=== PATIENT | male | born 1970 | race Caucasian/White ===

== ENCOUNTER → 2020-05-27 10:38 | Outpatient (CLI) | payer OTHER, SELFPAY ==
--- NOTE | ~2020-05-27 | XR_ITS ---
XR hand LT min 3V DATE: 05/27/2020 11:20 INDICATION: Hand pain TECHNIQUE: 3 views COMPARISON: None FINDINGS: There is osteoarthritic spurring at the interphalangeal joint of the first digit. No fracture, dislocation, periosteal reaction or bone destruction, erosive change or chondrocalcinosi s. 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
--- NOTE | ~2020-05-27 | XR_ITS ---
XR sternum min 2V DATE: 05/27/2020 11:20 INDICATION: Sternal knot TECHNIQUE: Oblique and lateral views COMPARISON: None FINDINGS: No fracture or bone destruction or other significant abnormality of the sternum is evident. IMPRESSION: Negative Reviewed, dictated and finalized at location B. IMPRESSION: Negative
--- NOTE | ~2020-05-27 | XR_ITS ---
XR hand RT min 3V DATE: 05/27/2020 11:20 INDICATION: Hand pain TECHNIQUE: 3 views COMPARISON: None FINDINGS: There is osteoarthritic spurring at the interphalangeal joint of the thumb. No fracture, dislocation, periosteal reaction or bone destruction, erosive change or chondrocalcinosi s. IMPRESSION: Osteoarthritis at interphalangeal joint of thumb Reviewed, dictated and finalized at location B.
--- NOTE | ~2020-05-27 | XR_ITS ---
XR hip BI wo pelvis DATE: 05/27/2020 11:19 INDICATION: Hip pain TECHNIQUE: AP, lateral and crosstable lateral views of each hip COMPARISON: None FINDINGS: No fracture or dislocation, avascular necrosis or bone destruction is evident. Hip joint sp aces are well preserved. The pubic symphysis and sacral iliac joints are intact. IMPRESSION: Negative Reviewed, dictated and finalized at location B. IMPRESSION: Negative
--- NOTE | ~2020-05-27 | XR_ITS ---
XR chest 2V DATE: 05/27/2020 11:19 INDICATION: Sternal knot TECHNIQUE: PA and lateral views COMPARISON: None FINDINGS: Normal heart size. No hilar or mediastinal enlargement. No pulmonary infiltrate or consolid ation, pleural effusion or pulmonary vascular congestion or pneumothorax. IMPRESSION: No active cardiopulmonary disease Reviewed, dictated and finalized at location B.
== END ==
PROVIDERS: PCP Emergency Medicine; Visit Provider Emergency Medicine
DX: M79.89 Other specified soft tissue disorders (principal); M19.041 Primary osteoarthritis, right hand; M19.042 Primary osteoarthritis, left hand
CPT/HCPCS: 71046; 71120; 73130; 73521

== ENCOUNTER 2020-08-27 10:42 | Emergency (ER) | payer OTHER, SELFPAY ==
--- NOTE | ~2020-08-27 | XR_ITS ---
EXAMINATION: XR tibia fibula LT 2V INDICATION: Left leg pain after fall TECHNIQUE: Two views of the left tibia and fibula are obtained. COMPARISON: None available FINDINGS: There is no fracture, dislocation, or subluxation. Bone alignment is normal. Soft tissue sw elling is seen over the mid leg. Mild osteoarthritis is noted in the knee. IMPRESSION: 1. Anterior soft tissue swelling without evidence of underlying osseous abnormality. Reviewed, dictated and finalized at location A. MAYONNAISE IMPRESSION: 1. Anterior soft tissue swelling without evidence of underlying osseous abnorma lity.
[2020-08-27 11:00] VITALS: BP 163/84; PULSE 75; RESP 18; TEMP 36.8; O2SAT 100
--- NOTE | 2020-08-27 11:27 | ED.LOWEXIN ---
HPI - Extremity Injury (Lower) General Chief Complaint: Extremity Injury, Lower Stated Complaint: Left Leg Injury Time Seen by Provider: 08/27/20 11:05 Source: patient Mode of arrival: ambulatory Limitations: no limitations History of Present Illness HPI Narrative: This is a 50 year old male that presents to the ER for left leg injury 6 days ago. Reports he accidentally hit his left leg on the bottom of his boat. Reports a superficial abrasion to the area. Reports since he has had increasing redness and pain to the area. Denies fever. Related Data Home Medications Medication Instructions Recorded Confirmed aspirin 81 mg PO DAILY 08/27/20 losartan 100 mg PO DAILY 08/27/20 simvastatin 20 mg PO DAILY 08/27/20 tamsulosin 0.4 mg PO DAILY 08/27/20 Allergies Allergy/AdvReac Type Severity Reaction Status Date / Time No Known Allergies Allergy Verified 08/27/20 11:10 Review of Systems Review of Systems: Narrative: CONSTITUTIONAL: Denies fever SKIN: Reports erythema and edema MUSCULOSKELETAL: Denies joint pain, or myalgia. NEUROLOGIC: Denies numbness All systems reviewed & are unremarkable except as noted in HPI and below PMFSH Past Medical History Medical History (Updated 08/27/20 @ 13:49 by Sirena Sevilla PA-C) History of hyperlipidemia History of hypertension Exam Narrative: Exam Narrative: GENERAL: Well-appearing, well-nourished, and in no acute distress. HEAD: Normocephalic, atraumatic. EYES: EOMI. EXTREMITIES: Normal range of motion. Mild edema with moderate erythema surrounding superficial abrasion to the left mcdonald. Normal DP pulses. Normal sensation SKIN: Warm, dry, no rash. NEURO: No focal deficits. Alert and oriented x3. PSYCH: Normal mood and affect Course Vital Signs Vital signs: Vital Signs Temperature 98.2 F 08/27/20 11:00 Pulse Rate 75 08/27/20 11:00 Respiratory Rate 18 08/27/20 11:00 Blood Pressure 163/84 H 08/27/20 11:00 Pulse Oximetry 100 08/27/20 11:00 Temperature 98.2 F 08/27/20 11:00 Pulse Rate 75 08/27/20 11:00 Respiratory Rate 18 08/27/20 11:00 Blood Pressure 163/84 H 08/27/20 11:00 Pulse Oximetry 100 08/27/20 11:00 MDM - Extremity Injury (Lower) MDM Narrative Medical decision making narrative: Patient presents the emergency department for cellulitis of the left lower extremity. He is afebrile and nontoxic-appearing. CBC is without leukocytosis. Inflammatory markers are not elevated. Left tib-fib x-ray is without acute osseous abnormalities. Patient updated on case findings. He will be started on oral antibiotics. He is to follow-up with primary care doctor. He was given warnings to return to the ER Lab Data Attestation: I reviewed the patient's lab results. Result diagrams: 08/27/20 11:50 08/27/20 11:50 Labs: Lab Results 08/27/20 08/27/20 Range/Units 11:50 11:50 WBC 6.4 (4.5-10.0) K/mm3 RBC 5.12 (4.6-6.20) M/mm3 Hgb 16.2 (14.0-18.0) g/dL Hct 45.5 (42.0-52.0) % MCV 88.9 (80-100) fl MCH 31.6 (26-34) pg MCHC 35.6 (32-36) g/dl RDW 12.9 (11.5-14.5) % Plt Count 200 (150-375) k/mm3 MPV 9.1 (7.4-10.4) fl Immature Gran % (Auto) 0.2 (0-0.5) % Neut % (Auto) 70.3 (45.5-73.1) % Lymph % (Auto) 17.7 L (18.3-44.2) % [place] % (Auto) 9.3 H (2.6-8.5) % Eos % (Auto) 2.2 (0-4.4) % Baso % (Auto) 0.3 (0.2-1.2) % Lymph # (Auto) 1.14 (0.9-3.2) K/mm3 [place] # (Auto) 0.6 (0.1-0.6) K/mm3 Eos # (Auto) 0.1 (0-0.3) K/mm3 Baso # (Auto) 0.0 (0.0-0.1) K/mm3 Abs Immat Gran (auto) 0.01 (0.00-0.031) K/mm3 Absolute Neuts (auto) 4.5 (1.3-6.7) K/mm3 Absolute Nucleated RBC 0.0 (0.0-0.012) K/mm3 Nucleated RBC % 0.0 (0.0-0.2) % ESR 10 (0-20) mm/hr Sodium 140 (137-145) mmol/L Potassium 4.0 (3.4-5.0) mmol/L Chloride 104 (98-107) mmol/L Carbon Dioxide 28 (22-30) mmol/L Anion Gap 8 (8-16) mmol/L BUN 20 (9-20) mg/dL
[2020-08-27] MEDS: TETANUS,DIPHTHERIA,AC PERTUSSIS ADULT (0.5 ML) BOOSTRIX IM (11:51)
[2020-08-27 12:05] LABS: Basophils Percent Auto 0.3 % (0.2-1.2); Eosinophils Absolute Auto 0.1 K/mm3 (0-0.3); Eosinophils Percent Auto 2.2 % (0-4.4); Hematocrit 45.5 % (42.0-52.0); Hemoglobin 16.2 g/dL (14.0-18.0); Immature Granulocyte Absolute 0.01 K/mm3 (0.00-0.031); Immature Granulocyte Percent A 0.2 % (0-0.5); Lymphocytes Absolute Auto 1.14 K/mm3 (0.9-3.2); Lymphocytes Percent Auto 17.7 % (18.3-44.2); Mean Corpuscular HGB Conc 35.6 g/dl (32-36); Mean Corpuscular Hemoglobin 31.6 pg (26-34); Mean Corpuscular Volume 88.9 fl (80-100); Mean Platelet Volume 9.1 fl (7.4-10.4); Monocytes Absolute Auto 0.6 K/mm3 (0.1-0.6); Monocytes Percent Auto 9.3 % (2.6-8.5); Neutrophils Absolute Auto 4.5 K/mm3 (1.3-6.7); Neutrophils Percent Auto 70.3 % (45.5-73.1); Platelet Count Result 200 k/mm3 (150-375); Red Blood Count 5.12 M/mm3 (4.6-6.20); Red Cell Distribution Width 12.9 % (11.5-14.5); White Blood Count 6.4 K/mm3 (4.5-10.0)
[2020-08-27 12:21] LABS: Anion Gap 8 mmol/L (8-16); Blood Urea Nitrogen 20 mg/dL (9-20); CRP 0.7 mg/dL (<1.0); Calcium 9.6 mg/dL (8.4-10.2); Carbon Dioxide 28 mmol/L (22-30); Chloride 104 mmol/L (98-107); Estimated CRCL calculation 92 ml/min; Estimated Glomerular Filt Rate > 60; Glucose 119 mg/dL (75-110); Sodium 140 mmol/L (137-145)
[2020-08-27 13:23] LABS: Erythrocyte Sedimentation Rate 10 mm/hr (0-20)
== END 2020-08-27 14:22 | disposition home or self-care (01) ==
PROVIDERS: Physician Assistant; Emergency Provider Emergency Medicine; PCP Emergency Medicine
DX: L03.116 Cellulitis of left lower limb (principal); Z23 Encounter for immunization; E78.5 Hyperlipidemia, unspecified; I10 Essential (primary) hypertension
CPT/HCPCS: 36415; 73590; 80048; 85025; 85652; 86140; 90471; 90715; 96374; 99284; A9270; J0690

== ENCOUNTER → 2021-02-24 18:41 | Outpatient (CLI) | payer OTHER, SELFPAY ==
--- NOTE | ~2021-02-24 | XR_ITS ---
EXAMINATION: XR shoulder LT min 2V DATE: 02/24/2021 19:03 INDICATION: Left shoulder pain. TECHNIQUE: 4 views of left shoulder were obtained. COMPARISON: None. FINDINGS: Bone alignment is normal. No fracture. There is mild osteoarthritis of glenohumeral joint a nd severe osteoarthritis of acromioclavicular joint. IMPRESSION: 1. Polyarticular osteoarthritis. Reviewed, dictated and finalized at location A.
== END ==
PROVIDERS: PCP Emergency Medicine; Visit Provider Emergency Medicine
DX: M19.012 Primary osteoarthritis, left shoulder (principal)
CPT/HCPCS: 73030

== ENCOUNTER 2022-09-26 23:10 | Inpatient (IN) | payer OTHER, SELFPAY ==
--- NOTE | ~2022-09-26 | XR_ITS ---
XR chest 2V 09/26/2022 23:48 Indication: Fever and cough Procedure: 2 view chest Comparison: 05/27/2020 Findings: There is right perihilar and left basilar airspace disease. Heart size normal. No pleural e ffusion or pneumothorax. No acute osseous abnormality. Impression: 1: Right perihilar and left basilar airspace disease, suspicious for pneumonia. Reviewed, dictated and finalized at location A. RITY TRAINER Impression: 1: Right perihilar and left basilar airspace disease, suspicious for pneumonia.
--- NOTE | ~2022-09-26 | XR_ITS ---
XR chest 2V 09/30/2022 12:03 Indication: COPD. Shortness of breath and cough. Procedure: PA and lateral views of the chest Comparison: 09/26/2022 Findings: Heart size normal. No focal air space disease, pulmonary edema, pleural effusion or suspect ed pneumothorax. No acute osseous abnormality. Impression: 1: No acute cardiopulmonary disease. Reviewed, dictated and finalized at location A. SHARPSHOOTER Impression: 1: No acute cardiopulmonary disease.
[2022-09-26 23:13] VITALS: BP 158/82; PULSE 99; RESP 18; TEMP 37.3; O2SAT 96
[2022-09-26 23:41] LABS: Basophils Percent Auto 0.2 % (0.2-1.2); Eosinophils Absolute Auto 0.1 K/mm3 (0-0.3); Eosinophils Percent Auto 0.5 % (0-4.4); Hematocrit 43.8 % (42.0-52.0); Hemoglobin 15.5 g/dL (14.0-18.0); Immature Granulocyte Absolute 0.04 K/mm3 (0.00-0.031); Immature Granulocyte Percent A 0.4 % (0-0.5); Lymphocytes Absolute Auto 1.83 K/mm3 (0.9-3.2); Lymphocytes Percent Auto 17.8 % (18.3-44.2); Mean Corpuscular HGB Conc 35.4 g/dl (32-36); Mean Corpuscular Hemoglobin 31.6 pg (26-34); Mean Corpuscular Volume 89.4 fl (80-100); Mean Platelet Volume 9.4 fl (7.4-10.4); Monocytes Absolute Auto 1.1 K/mm3 (0.1-0.6); Monocytes Percent Auto 10.6 % (2.6-8.5); Neutrophils Absolute Auto 7.3 K/mm3 (1.3-6.7); Neutrophils Percent Auto 70.5 % (45.5-73.1); Platelet Count Result 258 k/mm3 (150-375); Red Cell Distribution Width 12.5 % (11.5-14.5); White Blood Count 10.3 K/mm3 (4.5-10.0)
--- NOTE | 2022-09-26 23:56 | ED.URI ---
HPI - URI/Sore Throat General Chief Complaint: Upper Respiratory Infection <Sirena Sevilla PA-C - Last Filed: 09/27/22 02:14> Stated Complaint: cough, congestion since thanksgiving <RANDY Rodriguez Last Filed: 09/27/22 02:14> Time Seen by Provider: 09/26/22 23:22 <RANDY Rodriguez Last Filed: 09/27/22 02:14> Source: patient and family <RANDY Rodriguez Last Filed: 09/27/22 02:14> Mode of arrival: ambulatory <RANDY Rodriguez Last Filed: 09/27/22 02:14> Limitations: no limitations <RANDY Rodriguez Last Filed: 09/27/22 02:14> History of Present Illness HPI Narrative: This is a 52-year-old male that presents to the emergency department for cold symptoms ongoing over the last week. Reports fever, cough, congestion, sore throat, and shortness of breath. Reports he has been using his inhaler and taking over the counter medications with little relief. He did not get an influenza or COVID vaccine this year. Denies fever or lower extremity edema. <RANDY Rodriguez Last Filed: 09/27/22 02:14> Related Data Home Medications: Home Medications Medication Instructions Recorded Confirmed losartan 50 mg tablet 100 mg PO DAILY 08/27/20 09/27/22 simvastatin 20 mg tablet 20 mg PO DAILY 08/27/20 09/27/22 tamsulosin 0.4 mg capsule 0.4 mg PO DAILY 08/27/20 09/27/22 carvedilol 12.5 mg tablet 12.5 mg PO BID 09/27/22 09/27/22 hydrochlorothiazide 25 mg tablet 25 mg PO QHS 09/27/22 09/27/22 <RANDY Rodriguez Last Filed: 09/27/22 02:14> Allergies/Adverse Reactions: Allergies Allergy/AdvReac Type Severity Reaction Status Date / Time No Known Allergies Allergy Verified 08/27/20 11:10 <RANDY Rodriguez Last Filed: 09/27/22 02:14> Review of Systems Review of Systems: CONSTITUTIONAL: Reports fever EYES: Denies redness, or discharge. ENT: Reports rhinorrhea, congestion, sore throat CARDIOVASCULAR: Denies chest pain, or edema. RESPIRATORY: Reports cough and dyspnea. GASTROINTESTINAL: Denies vomiting SKIN: Denies rash MUSCULOSKELETAL: Reports myalgia. NEUROLOGIC: Reports generalized weakness. PSYCHIATRIC: Denies anxiety <Sirena Sevilla PA-C - Last Filed: 09/27/22 02:14> All systems reviewed & are unremarkable except as noted in HPI and below <Sirena Sevilla PA-C - Last Filed: 09/27/22 02:14> PMFSH Past Medical History Medical History: Medical History (Updated 09/27/22 @ 02:44 by Leonid Whiteside MD) History of hyperlipidemia History of hypertension <Sirena Sevilla PA-C - Last Filed: 09/27/22 02:14> Family History Family History: Family History (Updated 09/27/22 @ 05:04 by Karlie Cast RN) Mother Diabetes mellitus Hypertension Father Acute myocardial infarction Diabetes mellitus <Sirena Sevilla PA-C - Last Filed: 09/27/22 02:14> Social History Social History: Social History Smoking packs per day: 1 Smoking cigarettes per day: 20.0 Smoking status: Former smoker Tobacco type: cigarettes Smoking end date: 09/17/22 Alcohol intake: current Drinks per week: 8 Lack of Transportation: No Lack of Food: Never True Current Housing: I Have Housing Concerned About Future Housing: No Difficulty Paying Gas/Electric Bills: No Difficulty Paying for Meds: No Currently Unemployed: No Education: High School Diploma/GED Difficulty w/ Childcare or Family Care: No Spiritual care concerns: No <RANDY Rodriguez Last Filed: 09/27/22 02:14> Exam Narrative: GENERAL: Well-appearing, well-nourished, and in no acute distress. HEAD: Normocephalic, atraumatic. EYES: EOMI. ENT: Nares clear, no rhinorrhea or epistaxis. Mucous membranes moist. Oropharynx without tonsillar hypertrophy exudate or other lesions. Bilateral TMs pearly esquivel non-bulging NECK: Supple. No adenopathy or masses. CHEST: No res
[2022-09-26 23:57] LABS: Anion Gap 7 mmol/L (8-16); Blood Urea Nitrogen 16 mg/dL (9-20); Calcium 8.2 mg/dL (8.4-10.2); Carbon Dioxide 29 mmol/L (22-30); Chloride 101 mmol/L (98-107); Estimated CRCL calculation 71 ml/min; Estimated Glomerular Filt Rate > 60; Glucose 125 mg/dL (65-110); Potassium 3.5 mmol/L (3.4-5.0); Sodium 137 mmol/L (137-145)
[2022-09-26] MEDS: ALBUTEROL SULFATE NEB 2.5 MG/3 ML INH 5 MG INHALATION (23:59)
[2022-09-26] MEDS: IPRATROPIUM BR 0.02% INH SOLN 0.5 MG/2.5 ML VIAL INHALATION (23:59)
[2022-09-27] VITALS (13 sets, daily range): BP systolic 118–157; BP diastolic 59–83; PULSE 75–94; RESP 16–20; TEMP 36.6; O2SAT 95–98; BMI 32.6
[2022-09-27 00:09] LABS: Troponin I < 0.012 ng/mL (0.000-0.034)
[2022-09-27] MEDS: methylPREDNISolone SOD SUCC 125 MG VIAL IV PUSH (00:20)
[2022-09-27 00:29] LABS: Influenza A QL RT-PCR Negative (Negative); Influenza B QL RT-PCR Negative (Negative); RSV RNA, RT-PCR Negative (Negative); SARS-CoV-2 RNA PCR Negative
[2022-09-27] MEDS: ALBUTEROL SULFATE NEB 2.5 MG/3 ML INH 15 MG INHALATION (00:34)
[2022-09-27] MEDS: IPRATROPIUM BR 0.02% INH SOLN 0.5 MG/2.5 ML VIAL 1.5 MG INHALATION (00:35)
--- NOTE | 2022-09-27 02:06 | PM.IMHP ---
H&P: HPI History of Present Illness Date/Time: 09/27/22 02:06 Chief Complaint: 52 years old male with past medical history of hypertension hyperlipidemia quit smoking on last with day presented to the hospital with shortness of breath started 1 week ago worsening with activity associated with sore throat congestion patient also has lower extremity swelling and complaining of orthopnea denies fever or chills patient was given nebulizer treatment and steroid in the ER without improvement patient will be admitted to the hospital for COPD exacerbation evaluation and treatment Review of Systems Review of Systems: Twelve system review was done negative except above PMFSH Past Medical History Medical History (Updated 09/27/22 @ 02:44 by Leonid Whiteside MD) History of hyperlipidemia History of hypertension Social History Social History Smoking status: Former smoker Smoking end date: 09/17/22 Meds Home Medications and Allergies Home Medications Medication Instructions Recorded Confirmed Type aspirin 81 mg tablet 81 mg PO DAILY 08/27/20 History cephalexin 500 mg capsule 500 mg PO Q6H 1 week #28 caps 08/27/20 Rx levofloxacin 750 mg tablet 750 mg PO DAILY 1 week #7 tabs 08/27/20 Rx losartan 50 mg tablet 100 mg PO DAILY 08/27/20 History simvastatin 20 mg tablet 20 mg PO DAILY 08/27/20 History tamsulosin 0.4 mg capsule 0.4 mg PO DAILY 08/27/20 History Allergies Allergy/AdvReac Type Severity Reaction Status Date / Time No Known Allergies Allergy Verified 08/27/20 11:10 Vital Signs Vital Signs - 24 hr 09/26/22 23:13 09/27/22 00:00 09/27/22 00:36 Temperature 99.1 F Pulse Rate 99 94 78 Respiratory Rate 18 18 18 Blood Pressure 158/82 H Pulse Oximetry 96 Oxygen Delivery Room Air Exam Narrative: GENERAL: Well appearing, well-nourished, non-toxic, in no acute distress. HEAD: Normocephalic, atraumatic. NECK: Supple. No adenopathy, no masses. RESPIRATORY: Bilateral wheeze and crackles CARDIOVASCULAR: Regular rate and rhythm without murmurs, rubs, or gallops. Peripheral pulses 2+ and equal bilaterally. ABDOMINAL: Soft, nontender, nondistended, no hepatosplenomegaly. Normoactive BS. MUSCULOSKELETAL: Moves all extremities. Strength/ROM intact without gross deformities or TTP. No edema. No calf tenderness. No chest wall tenderness palpation. SKIN: Warm, dry, normal color. No rashes. NEURO: A&O X3. Speech clear. Cranial nerves II-XII grossly intact. Steady gait. No ataxic movements. PSYCHIATRIC: Appropriate mood and affect. Normal interaction. H&P: Results Labs Labs: Short CBC 09/26/22 Range/Units 23:36 WBC 10.3 H (4.5-10.0) K/mm3 Hgb 15.5 (14.0-18.0) g/dL Hct 43.8 (42.0-52.0) % Plt Count 258 (150-375) k/mm3 BMP 09/26/22 23:36 Sodium 137 Potassium 3.5 Chloride 101 Carbon Dioxide 29 BUN 16 Creatinine 1.20 Glucose 125 H Calcium 8.2 L Cardiac Enzymes 09/26/22 Range/Units 23:36 Troponin I < 0.012 (0.000-0.034) ng/mL Assessment and Plan Assessment and plan (1) COPD exacerbation: Code(s): J44.1 - Chronic obstructive pulmonary disease with (acute) exacerbation Status: Acute Assessment and Plan: Nebulizer treatment IV steroid IV antibiotics sputum culture influenza and COVID-19 was negative (2) History of hyperlipidemia: Code(s): Z86.39 - Personal history of other endocrine, nutritional and metabolic disease Status: Acute Assessment and Plan: Resume home medication (3) History of hypertension: Code(s): Z86.79 - Personal history of other diseases of the circulatory system Status: Acute Assessment and Plan: Stable continue current treatment resume losartan was medication reconciled (4) Orthopnea: Code(s): R06.01 - Orthopnea Status: Acute Assessment and Plan: Associated with lower extremity
--- NOTE | 2022-09-27 03:09 | ADMGEN ---
This patient, Rolando Alcala, was admitted to [facility] Surg Room 331-02. Patient/family oriented to hospital policies and general routines including ID bracelet, bed and alarms, visiting hours, pain management, procedures, bathroom and other care routines, personal items, smoking policy, room service/diet, and visiting hours. Information on how to activate the Rapid Response Team has been discussed. Patient/Family are encouraged to report perceived risks to care and to ask questions if they do not understand what they are told or what they should do.
[2022-09-27 03:29] LABS: Procalcitonin 0.1 ng/mL
[2022-09-27 03:48] LABS: NT Pro B Type Natriuretic Pept 32 pg/mL (5-100)
[2022-09-27] MEDS: cefTRIAXone 2 GM in SODIUM CHLORIDE 0.9% IV 100 ML 200 ML IVPB (04:05)
[2022-09-27] MEDS: FUROSEMIDE INJ 40 MG/4 ML VIAL IV PUSH ×2 (04:08→08:54)
[2022-09-27 08:21] LABS: Alanine Aminotransferase 37 U/L (6-50); Albumin Level 4.4 g/dL (3.5-5.1); Alkaline Phosphatase 103 U/L (38-126); Anion Gap 10 mmol/L (8-16); Aspartate Amino Transferase 35 U/L (17-59); Bilirubin,Total 0.4 mg/dL (0.2-1.3); Blood Urea Nitrogen 16 mg/dL (9-20); CRP 8.3 mg/dL (<1.0); Calcium 8.6 mg/dL (8.4-10.2); Carbon Dioxide 30 mmol/L (22-30); Chloride 98 mmol/L (98-107); Estimated CRCL calculation 66 ml/min; Estimated Glomerular Filt Rate 58; Glucose 181 mg/dL (65-110); Potassium 3.4 mmol/L (3.4-5.0); Sodium 138 mmol/L (137-145)
[2022-09-27 08:23] LABS: Basophils Percent Auto 0.2 % (0.2-1.2); Hematocrit 46.2 % (42.0-52.0); Hemoglobin 15.9 g/dL (14.0-18.0); Immature Granulocyte Absolute 0.05 K/mm3 (0.00-0.031); Immature Granulocyte Percent A 0.5 % (0-0.5); Lymphocytes Absolute Auto 0.69 K/mm3 (0.9-3.2); Lymphocytes Percent Auto 6.9 % (18.3-44.2); Mean Corpuscular HGB Conc 34.4 g/dl (32-36); Mean Corpuscular Hemoglobin 31.5 pg (26-34); Mean Corpuscular Volume 91.7 fl (80-100); Mean Platelet Volume 9.8 fl (7.4-10.4); Monocytes Absolute Auto 0.2 K/mm3 (0.1-0.6); Monocytes Percent Auto 1.7 % (2.6-8.5); Neutrophils Absolute Auto 9.1 K/mm3 (1.3-6.7); Neutrophils Percent Auto 90.7 % (45.5-73.1); Platelet Count Result 279 k/mm3 (150-375); Red Blood Count 5.04 M/mm3 (4.6-6.20); Red Cell Distribution Width 12.5 % (11.5-14.5); White Blood Count 10.1 K/mm3 (4.5-10.0)
[2022-09-27] MEDS: ALBUTEROL SULFATE NEB 2.5 MG/3 ML INH INHALATION ×3 (08:36→21:45)
[2022-09-27] MEDS: IPRATROPIUM BR 0.02% INH SOLN 0.5 MG/2.5 ML VIAL INHALATION ×3 (08:36→21:46)
[2022-09-27] MEDS: FAMOTIDINE 20 MG TABLET PO (08:54)
[2022-09-27] MEDS: ENOXAPARIN 40 MG/0.4 ML SYRINGE SUB-Q (08:54)
[2022-09-27] MEDS: methylPREDNISolone SOD SUCC 40 MG VIAL IV PUSH ×2 (08:54→17:34)
[2022-09-27] MEDS: TAMSULOSIN HCL 0.4 MG CAPSULE PO (08:56)
[2022-09-27] MEDS: carvediloL 12.5 MG TABLET PO ×2 (09:22→21:01)
[2022-09-27] MEDS: SIMVASTATIN 20 MG TABLET PO (09:22)
[2022-09-27] MEDS: AZITHROMYCIN 250 MG TABLET 500 MG PO (09:59)
[2022-09-27] MEDS: LOSARTAN POTASSIUM 100 MG TABLET PO (10:00)
--- NOTE | 2022-09-27 10:00 | PM.IMPN ---
Progress Note: A&P Assessment and Plan (1) COPD exacerbation: Code(s): J44.1 - Chronic obstructive pulmonary disease with (acute) exacerbation Status: Acute Assessment and Plan: Nebulizer treatment IV steroid 40mg Q8H IV antibiotics azithromycin and ceftriaxone sputum culture 1. showing normal jemal, 2. pending influenza and COVID-19 was negative Anti-tussives for cough Pulm consult thank you for your help (2) History of hyperlipidemia: Code(s): Z86.39 - Personal history of other endocrine, nutritional and metabolic disease Status: Acute Assessment and Plan: Resume home medication (3) History of hypertension: Code(s): Z86.79 - Personal history of other diseases of the circulatory system Status: Acute Assessment and Plan: Current BP is 153/83 Continue home medications Trend blood pressure Adjust therapy as indicated (4) Orthopnea: Code(s): R06.01 - Orthopnea Status: Acute Assessment and Plan: Associated with lower extremity swelling probable acute and of chronic diastolic CHF exacerbation Check echo BNP 38 IV diuresis Time Spent With Patient Time with patient: Greater than 35 minutes Subjective Date/time seen: 09/27/22 1000 Interval history: 09/27/22 1000 Patient seems to be doing well today. Patient was able to come to room air. Patient was also walked with the tach and was able to maintain his saturations with room air as well. He was complain severe coughing spells and muscle cramps. Labs have been stable. Will consult pulmonology as the patient is stating his breathing is worse. 09/27/22? 02:06 52 years old male with past medical history of hypertension hyperlipidemia quit smoking on last with day presented to the hospital with shortness of breath started 1 week ago worsening with activity associated with sore throat congestion patient also has lower extremity swelling and complaining of orthopnea denies fever or chills patient was given nebulizer treatment and steroid in the ER without improvement patient will be admitted to the hospital for COPD exacerbation evaluation and treatment Review of Systems Review of Systems: All systems reviewed & are unremarkable except as noted in HPI and below Exam Narrative: General: well-nourished, well-appearing 52-year-old male, sitting up in bed, comfortable, NARD Neuro: awake, alert and oriented x4, speech clear, no focal neuro deficits noted HEENMT: normocephalic, atraumatic, EOMI, sclerae anicteric, moist oral mucosa Respiratory: expiratory wheezes bilaterally without crackles, rhonchi nonlabored breathing, multiple coughing spells Cardio: regular rate, regular rhythm with S1-S2 Abdomen: nondistended, normoactive bowel sounds, soft, nontender to palpation Extremities: no edema, erythema, or tenderness to palpation, DP pulses 2+ bilaterally Skin: no rashes or lesions, warm and dry Psych: appropriate mood and affect, judgment and insight intact Objective Data Vital Signs Vital Signs: Vital Signs - 24 hr 09/26/22 23:13 09/27/22 00:00 09/27/22 00:36 Temperature 99.1 F Pulse Rate 99 94 78 Respiratory Rate 18 18 18 Blood Pressure 158/82 H Pulse Oximetry 96 Oxygen Delivery Room Air 09/27/22 02:58 09/27/22 03:15 09/27/22 08:47 Temperature 97.9 F Pulse Rate 81 84 75 Respiratory Rate 20 16 18 Blood Pressure 148/80 H 153/83 H Pulse Oximetry 97 95 Oxygen Delivery 09/27/22 08:55 09/27/22 09:22 09/27/22 08:45 Temperature Pulse Rate 75 75 Respiratory Rate 18 Blood Pressure Pulse Oximetry Oxygen Delivery Room Air Intake/Output Intake/Output: Intake & Output 09/24/22 09/25/22 09/26/22 09/27/22 23:59 23:59 23:59 23:59 Intake Total 720 Output Total 1750 Balance -1030 Meds/Results Medications: Active Medications Generic Name Dose Route Start Last Admin Trade
--- NOTE | 2022-09-27 12:59 | PM.DS ---
DS: Admitting Diagnosis Discharge Date 09/27/22 1000 Admitting Diagnosis COPD exacerbation DS: Discharge Diagnosis Discharge Diagnosis (1) COPD exacerbation: Code(s): J44.1 - Chronic obstructive pulmonary disease with (acute) exacerbation Status: Acute Assessment and Plan: Nebulizer treatment IV steroid IV antibiotics sputum culture influenza and COVID-19 was negative (2) History of hyperlipidemia: Code(s): Z86.39 - Personal history of other endocrine, nutritional and metabolic disease Status: Acute Assessment and Plan: Resume home medication (3) History of hypertension: Code(s): Z86.79 - Personal history of other diseases of the circulatory system Status: Acute Assessment and Plan: Stable continue current treatment resume losartan was medication reconciled (4) Orthopnea: Code(s): R06.01 - Orthopnea Status: Acute Assessment and Plan: Associated with lower extremity swelling probable acute and of chronic diastolic CHF exacerbation Check echo and BNP Will give IV diuresis DS: Summary Hospital Course Hospital Course: Patient is a 52-year-old male with past medical history of hypertension, hyperlipidemia, chronic smoker, BPH who presented to the ED with complaints of shortness of breath worsening over 1 week. Patient was noted to have bibasilar airspace disease suspicious for pneumonia. Patient was started on IV antibiotics. Patient does report increasing cough with sputum production, wheezes, shortness of breath. Patient was started on IV steroids for COPD exacerbation. Patient has also been given neb treatments. Supplemental oxygen was provided however has been weaned to room air and patient has been able to maintain greater than 90% on room air. Education about smoking cessation has been given. Patient denies any chest pain, shortness a breath, nausea, vomiting, diarrhea, constipation, weakness or fatigue. Patient is stable for discharge at this time and is ready to go. Did educate patient about asking about mortgage loan specialist at his next doctor's visit. Time spent discussing smoking cessation with patient: more than 10 minutes Status at Discharge Functional status at discharge: independent ambulation Overall status at discharge: patient is progressing back to baseline Time Spent with Patient Time attestation: Total time spent providing and/or coordinating discharge services:36 minutes Time spent: Greater than 30 minutes Specific discharge activities: Diagnostic testing, chart review, developing a treatment plan, education, care coordination documentation, physical exam, result review Exam Narrative: General: well-nourished, well-appearing 52-year-old male, sitting up in bed, comfortable, NARD Neuro: awake, alert and oriented x4, speech clear, no focal neuro deficits noted HEENMT: normocephalic, atraumatic, EOMI, sclerae anicteric, moist oral mucosa Respiratory: Clear to auscultation bilaterally without crackles, rhonchi or wheezes, nonlabored breathing Cardio: regular rate, regular rhythm with S1-S2 Abdomen: nondistended, normoactive bowel sounds, soft, nontender to palpation Extremities: no edema, erythema, or tenderness to palpation, DP pulses 2+ bilaterally Skin: no rashes or lesions, warm and dry Psych: appropriate mood and affect, judgment and insight intact DS: Data Data Completed and Pending Labs on day of discharge: Labs from last 24 hours 09/27/22 09/27/22 09/27/22 12:52 07:28 07:28 WBC 10.1 H RBC 5.04 Hgb 15.9 Hct 46.2 MCV 91.7 MCH 31.5 MCHC 34.4 RDW 12.5 Plt Count 279 MPV 9.8 Immature Gran % (Auto) 0.5 Neut % (Auto) 90.7 H Lymph % (Auto) 6.9 L [place] % (Auto) 1.7 L Eos % (Auto) 0.0 Baso % (Auto) 0.2 Lymph # (Auto) 0.69 L [place] # (Auto) 0.2 Eos # (Auto) 0.0 Baso # (Auto) 0.0 Abs Immat Gran (auto) 0.05 H Absolute Neuts (auto) 9.1 H Absolute Nucleated RBC
[2022-09-27 13:02] LABS: Potassium 3.5 mmol/L (3.4-5.0)
[2022-09-27] MEDS: SODIUM CHLORIDE 0.9% IV 250 ML 999 ML IV CONT (13:56)
[2022-09-27] MEDS: POTASSIUM CHLORIDE 20 MEQ PACKET (FOR LIQUID) 40 MEQ PO (13:57)
[2022-09-27] MEDS: TIZANIDINE HCL 2 MG TABLET PO (14:07)
[2022-09-27] MEDS: guaiFENesin/DEXTROMETHORPHAN 10 ML UDC PO (15:24)
[2022-09-27] MEDS: PANTOPRAZOLE 40 MG TABLET PO (21:00)
[2022-09-27] MEDS: hydroCHLOROthiazide 25 MG TABLET PO (21:01)
--- NOTE | 2022-09-27 23:28 | PC.NURSE ---
Pt is sleeping in bed. Pt continues to have a cough. Pt has no complaints of pain and expresses no other needs at this time. Pt participated and contributed in plan of care. Will continue to monitor pt.
[2022-09-28] VITALS (9 sets, daily range): BP systolic 139–154; BP diastolic 63–66; PULSE 60–71; RESP 14–20; TEMP 36.1–36.5; O2SAT 94–97
[2022-09-28] MEDS: methylPREDNISolone SOD SUCC 40 MG VIAL IV PUSH ×3 (00:17→17:21)
[2022-09-28] MEDS: ALBUTEROL SULFATE NEB 2.5 MG/3 ML INH INHALATION ×3 (01:52→20:54)
[2022-09-28] MEDS: IPRATROPIUM BR 0.02% INH SOLN 0.5 MG/2.5 ML VIAL INHALATION ×3 (01:52→20:53)
[2022-09-28] MEDS: cefTRIAXone 2 GM in SODIUM CHLORIDE 0.9% IV 100 ML 200 ML IVPB (02:11)
--- NOTE | 2022-09-28 02:45 | ECHO_ITS ---
Patient Info Name: Rolando Canada Cari Age: 52 years : 1970 Gender: Male Ht: 68 in Wt: 214 lbs BSA: 2.19 m2 HR: 85 bpm BP: 157 / 60 mmHg Heart Rhythm: Sinus Rhythm Exam Date: 09/28/2022 10:49 AM Exam Location: [facility] Patient Status: Outpatient Admit Date: 09/27/2022 Staff Ordering Physician: Leonid Whiteside M.A., MD Assistant Maintenance Manager: Abhi Munroe, CHRISTINA, RT Attending Provider: Leonid Whiteside M.A., MD Referring Physician: Emiliano RANDOLPH; Exam Type: CA echo doppler color flow Study Info Indications I50.9 - Heart failure, unspecified Complete two-dimensional, color flow and Doppler transthoracic echocardiogram is performed. Strain analysis performed. Summary 1. Left ventricular chamber dimension is normal. 2. Left ventricular systolic function is hyperdynamic, estimated at >70%. 3. There is mildly increased left ventricular wall thickness. 4. The left ventricular diastolic function is grade I diastolic dysfunction. 5. Global longitudinal strain is normal at -19 %. 6. There is no aortic valve stenosis. Left Ventricle Left ventricular chamber dimension is normal. Left ventricular systolic function is hyperdynamic, estimated at >70%. There is mildly increased left ventricular wall thickness. The left ventricular diastolic function is grade I diastolic dysfunction. Global longitudinal strain is normal at -19 %. Right Ventricle Right ventricular chamber dimension is normal. Right ventricular systolic function is normal. Left Atria Left atrial chamber dimension is normal. Right Atria Right atrial chamber dimension is normal. Aortic Valve The aortic valve is not well visualized. There is no aortic valve stenosis. There is no aortic valve regurgitation. Pulmonic Valve The pulmonic valve is not well visualized. Mitral Valve The mitral valve has normal leaflets. There is trace mitral valve regurgitation. Tricuspid Valve The tricuspid valve leaflets are normal. There is trace tricuspid valve regurgitation. Unable to estimate PA systolic pressure due to poor spectral resolution of tricuspid regurgitant jet velocity. Pericardium/Pleural The pericardium appears normal. There is small pericardial effusion. Inferior Vena Cava Normal inferior vena cava with >50% collapse upon inspiration consistent with normal right atrial pressure, 5 mmHg. Aorta The aortic root size at the sinus of Valsalva is normal. Left Ventricular Outflow Tract Name Value Normal LVOT 2D LVOT Diameter 2.0 cm LVOT Doppler LVOT Peak Gradient 7 mmHg LVOT Mean Gradient 3 mmHg LVOT VTI 22 cm LVOT VTI/AV VTI Ratio 0.6 LVOT Stroke Volume 68 ml Mitral Valve Name Value Normal MV Doppler MV Decel Slo
[2022-09-28 07:26] LABS: Basophils Percent Auto 0.2 % (0.2-1.2); Immature Granulocyte Absolute 0.09 K/mm3 (0.00-0.031); Immature Granulocyte Percent A 0.5 % (0-0.5); Lymphocytes Absolute Auto 1.36 K/mm3 (0.9-3.2); Lymphocytes Percent Auto 7.1 % (18.3-44.2); Mean Corpuscular HGB Conc 35.7 g/dl (32-36); Mean Corpuscular Hemoglobin 31.3 pg (26-34); Mean Corpuscular Volume 87.5 fl (80-100); Mean Platelet Volume 9.2 fl (7.4-10.4); Monocytes Absolute Auto 0.9 K/mm3 (0.1-0.6); Monocytes Percent Auto 4.9 % (2.6-8.5); Neutrophils Absolute Auto 16.8 K/mm3 (1.3-6.7); Neutrophils Percent Auto 87.3 % (45.5-73.1); Platelet Count Result 331 k/mm3 (150-375); White Blood Count 19.2 K/mm3 (4.5-10.0)
[2022-09-28 07:37] LABS: Alanine Aminotransferase 64 U/L (6-50); Alkaline Phosphatase 86 U/L (38-126); Anion Gap 6 mmol/L (8-16); Aspartate Amino Transferase 64 U/L (17-59); Bilirubin,Total 0.3 mg/dL (0.2-1.3); Blood Urea Nitrogen 24 mg/dL (9-20); Calcium 8.9 mg/dL (8.4-10.2); Carbon Dioxide 33 mmol/L (22-30); Chloride 95 mmol/L (98-107); Estimated CRCL calculation 71 ml/min; Estimated Glomerular Filt Rate > 60; Glucose 145 mg/dL (65-110); Potassium 3.8 mmol/L (3.4-5.0); Sodium 134 mmol/L (137-145)
[2022-09-28] MEDS: carvediloL 12.5 MG TABLET PO ×2 (08:38→21:26)
[2022-09-28] MEDS: ENOXAPARIN 40 MG/0.4 ML SYRINGE SUB-Q (08:38)
[2022-09-28] MEDS: AZITHROMYCIN 250 MG TABLET 500 MG PO (08:39)
[2022-09-28] MEDS: FUROSEMIDE INJ 40 MG/4 ML VIAL IV PUSH (08:39)
[2022-09-28] MEDS: SIMVASTATIN 20 MG TABLET PO (08:39)
[2022-09-28] MEDS: LOSARTAN POTASSIUM 100 MG TABLET PO (08:39)
[2022-09-28] MEDS: TAMSULOSIN HCL 0.4 MG CAPSULE PO (08:39)
[2022-09-28] MEDS: PANTOPRAZOLE 40 MG TABLET PO ×2 (08:39→21:26)
[2022-09-28] MEDS: guaiFENesin/DEXTROMETHORPHAN 10 ML UDC PO (12:54)
--- NOTE | 2022-09-28 13:02 | PM.CNPUL ---
Assessment and Plan Assessment and plan (1) COPD exacerbation: Code(s): J44.1 - Chronic obstructive pulmonary disease with (acute) exacerbation Status: Acute Assessment and Plan: Patient with a history of tobacco use and 15 pack year, worsening dyspnea on exertion over the last 20 years and now presents with 10 days worsening cough, phlegm production, fever, wheezing and dyspnea on exertion. I suspect the patient has COPD but I have no PFTs or CT scan to confirm this. I agree with treating patient for COPD exacerbation with possible pneumonia given his infiltrates on his chest x-ray. RT PCR studies for influenza, RSV and COVID are negative. One blood culture out of 2 was positive for Gram-positive cocci, will await identification. At this time would continue ceftriaxone and azithromycin both started on 09/27/2022. Patient is on Solu-Medrol 40 mg IV q.8 hours and I will continue this today. I will continue albuterol and ipratropium nebulizers and increased from Q 6 hours to q.4 hours. patient currently is on room air with saturations 97%. Patient is also being diuresed with Lasix and echocardiogram has been ordered. Will follow with you. History of Present Illness History of Present Illness Consult date: 09/28/22 Chief complaint: COPD Exacerbation Narrative: 09/28/2022: This is a new pulmonary consultation for COPD exacerbation. Patient is a 52-year-old with a history of hypertension, hyperlipidemia, tobacco use presented to [facility] on 09/27/2022 with 10 days history of cough, production of yellow phlegm, intermittent fever, wheezing and dyspnea on exertion. He states that his now has similar symptoms. In the emergency room the patient had a white blood cell count of 10.3, eosinophils 0.5%, creatinine of 0.2, CRP 8.3, troponin negative, BNP 32, procalcitonin 0.1. chest x-ray with right perihilar and left basilar airspace disease. Patient was admitted for COPD exacerbation and pneumonia and treated with ceftriaxone and azithromycin, Solu-Medrol, bronchodilators and Lasix 40 IV b.i.d.. His sputum showed mixed jemal, 1 of 2 blood cultures is growing out gram-positive cocci. Patient states he started smoking at age 11 and has quit on and off and over his life he has smoked for 15 years with 1 pack per day. Patient also has smoked marijuana. He denies vaping. He was exposed to secondhand smoke from both of his parents, his and is on [place] currently. 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 09/28 Today the patient tells me he has improved. He is 50% back to his baseline. His cough remains unchanged but he has no phlegm and no wheezing at this time. currently saturations are 97% on room air. His white blood cell count is 19.2 today. Review of Systems Constitutional: Constitutional: Reports no additional constitutional complaints Eyes: Eyes: Reports no additional eye complaints ENT: Reports system reviewed and no additional complaints, except as documented Cardiovascular: Cardiovascular: Reports no additional cardiovascular complaints Respiratory: Respiratory: Reports no additional respiratory complaints Gastrointestinal: Gastrointestinal: Reports no additional gastrointestinal complaints Musculoskeletal: Musculoskeletal: Reports no additional musculoskeletal complaints Neurologic: Reports system reviewed and no additional complaints, except as documented Psychiatric: Psychiatric: Reports no additional psychiatric complaints Endocrine: Endocrine: Reports no additional endocrine complaints Hematologic/Lymphatic: Hematologic/Lymphatic: Reports no additional hematologic/lymphatic complaints Allergic/Immunologic: Allergic/Immunologic: Reports no additional allergic/immunologic complaints [facility] Past Medical History Medical History (Up
--- NOTE | 2022-09-28 13:30 | PM.IMPN ---
Progress Note: A&P Assessment and Plan (1) COPD exacerbation: Code(s): J44.1 - Chronic obstructive pulmonary disease with (acute) exacerbation Status: Acute Assessment and Plan: Nebulizer treatment IV steroid 40mg Q8H IV antibiotics azithromycin and ceftriaxone sputum culture 1. showing normal jemal, 2. pending influenza and COVID-19 was negative Anti-tussives for cough Pulm consult thank you for your help (2) History of hyperlipidemia: Code(s): Z86.39 - Personal history of other endocrine, nutritional and metabolic disease Status: Acute Assessment and Plan: Resume home medication (3) History of hypertension: Code(s): Z86.79 - Personal history of other diseases of the circulatory system Status: Acute Assessment and Plan: Current BP is 139/63 Continue home medications Trend blood pressure Adjust therapy as indicated (4) Orthopnea: Code(s): R06.01 - Orthopnea Status: Acute Assessment and Plan: Associated with lower extremity swelling probable acute and of chronic diastolic CHF exacerbation Check echo BNP 38 IV diuresis stopped at this time, as this could be causing the cramping Time Spent With Patient Time with patient: Greater than 35 minutes Subjective Date/time seen: 09/28/22 1330 Interval history: 09/28/221329 Patient was lying in bed. Patient stated that he is doing okay however he is just having issues with his cough. He denies any chest pain, shortness a breath, nausea, vomiting, diarrhea, constipation, weakness or fatigue. Patient did state that he was having some muscle spasms but is way better today. He also stated that it just depends on how much he coughs. Will stop IV furosemide as this is probably causing him to cramp more. 09/27/22 1000 Patient seems to be doing well today. Patient was able to come to room air. Patient was also walked with the tach and was able to maintain his saturations with room air as well. He was complain severe coughing spells and muscle cramps. Labs have been stable. Will consult pulmonology as the patient is stating his breathing is worse. 09/27/22? 02:06 52 years old male with past medical history of hypertension hyperlipidemia quit smoking on last with day presented to the hospital with shortness of breath started 1 week ago worsening with activity associated with sore throat congestion patient also has lower extremity swelling and complaining of orthopnea denies fever or chills patient was given nebulizer treatment and steroid in the ER without improvement patient will be admitted to the hospital for COPD exacerbation evaluation and treatment Review of Systems Review of Systems: All systems reviewed & are unremarkable except as noted in HPI and below Exam Narrative: General: well-nourished, well-appearing 52-year-old male, sitting up in bed, comfortable, NARD Neuro: awake, alert and oriented x4, speech clear, no focal neuro deficits noted HEENMT: normocephalic, atraumatic, EOMI, sclerae anicteric, moist oral mucosa Respiratory: expiratory wheezes bilaterally without crackles, rhonchi nonlabored breathing, multiple coughing spells Cardio: regular rate, regular rhythm with S1-S2 Abdomen: nondistended, normoactive bowel sounds, soft, nontender to palpation Extremities: no edema, erythema, or tenderness to palpation, DP pulses 2+ bilaterally Skin: no rashes or lesions, warm and dry Psych: appropriate mood and affect, judgment and insight intact Objective Data Vital Signs Vital Signs: Vital Signs - 24 hr 09/27/22 15:33 09/27/22 15:45 09/27/22 17:30 Temperature 97.9 F Pulse Rate 78 78 86 Respiratory Rate 20 20 20 Blood Pressure 118/59 L Pulse Oximetry 98 Oxygen Delivery 09/27/22 21:01 09/27/22 21:04 09/27/22 21:46 Temperature Pulse Rate 75 76 Respiratory Rate 16 Blood Pressure Pulse Oximetry
[2022-09-28] MEDS: BENZOCAINE/MENTHOL (*BKC) 18 EA LOZENGE 1 LOZENGE PO ×2 (17:19→21:28)
[2022-09-28] MEDS: BENZONATATE 100 MG CAPSULE 200 MG PO ×2 (17:20→21:26)
[2022-09-28] MEDS: hydroCHLOROthiazide 25 MG TABLET PO (21:26)
--- NOTE | 2022-09-28 22:54 | PC.NURSE ---
Pt is resting in bed. Pt got a nebulizer treatment. Pt has stated that the cough drops ordered help the most with his cough. Pt has CPAP that was brought from home. Pt participated and contributed in plan of care. Pt has no complaints or needs at this time. Will continue to monitor pt.
[2022-09-29] VITALS (15 sets, daily range): BP systolic 126–139; BP diastolic 65–79; PULSE 53–80; RESP 16–20; TEMP 35.9–36.5; O2SAT 92–95
[2022-09-29] MEDS: methylPREDNISolone SOD SUCC 40 MG VIAL IV PUSH ×2 (01:14→07:53)
[2022-09-29] MEDS: ALBUTEROL SULFATE NEB 2.5 MG/3 ML INH INHALATION ×5 (01:30→21:57)
[2022-09-29] MEDS: IPRATROPIUM BR 0.02% INH SOLN 0.5 MG/2.5 ML VIAL INHALATION ×5 (01:30→21:57)
[2022-09-29] MEDS: cefTRIAXone 2 GM in SODIUM CHLORIDE 0.9% IV 100 ML 200 ML IVPB (03:07)
[2022-09-29 06:57] LABS: Basophils Percent Auto 0.2 % (0.2-1.2); Hematocrit 44.3 % (42.0-52.0); Hemoglobin 15.3 g/dL (14.0-18.0); Immature Granulocyte Absolute 0.16 K/mm3 (0.00-0.031); Immature Granulocyte Percent A 0.8 % (0-0.5); Lymphocytes Absolute Auto 1.51 K/mm3 (0.9-3.2); Mean Corpuscular HGB Conc 34.5 g/dl (32-36); Mean Corpuscular Hemoglobin 31.3 pg (26-34); Mean Corpuscular Volume 90.6 fl (80-100); Mean Platelet Volume 9.2 fl (7.4-10.4); Monocytes Absolute Auto 0.7 K/mm3 (0.1-0.6); Monocytes Percent Auto 3.4 % (2.6-8.5); Neutrophils Absolute Auto 16.5 K/mm3 (1.3-6.7); Neutrophils Percent Auto 87.6 % (45.5-73.1); Platelet Count Result 371 k/mm3 (150-375); Red Blood Count 4.89 M/mm3 (4.6-6.20); Red Cell Distribution Width 12.2 % (11.5-14.5); White Blood Count 18.9 K/mm3 (4.5-10.0)
[2022-09-29 06:59] LABS: Alanine Aminotransferase 128 U/L (6-50); Albumin Level 3.8 g/dL (3.5-5.1); Alkaline Phosphatase 86 U/L (38-126); Anion Gap 6 mmol/L (8-16); Aspartate Amino Transferase 83 U/L (17-59); Bilirubin,Total 0.4 mg/dL (0.2-1.3); Blood Urea Nitrogen 28 mg/dL (9-20); Calcium 8.7 mg/dL (8.4-10.2); Carbon Dioxide 32 mmol/L (22-30); Chloride 98 mmol/L (98-107); Estimated CRCL calculation 84 ml/min; Estimated Glomerular Filt Rate > 60; Glucose 138 mg/dL (65-110); Potassium 3.7 mmol/L (3.4-5.0); Sodium 136 mmol/L (137-145)
[2022-09-29] MEDS: BENZOCAINE/MENTHOL (*BKC) 18 EA LOZENGE 1 LOZENGE PO ×2 (07:51→20:51)
[2022-09-29] MEDS: LOSARTAN POTASSIUM 100 MG TABLET PO (07:59)
[2022-09-29] MEDS: BENZONATATE 100 MG CAPSULE 200 MG PO ×3 (07:59→17:02)
[2022-09-29] MEDS: TAMSULOSIN HCL 0.4 MG CAPSULE PO (07:59)
[2022-09-29] MEDS: AZITHROMYCIN 250 MG TABLET 500 MG PO (08:00)
[2022-09-29] MEDS: PANTOPRAZOLE 40 MG TABLET PO ×2 (08:00→20:51)
[2022-09-29] MEDS: SIMVASTATIN 20 MG TABLET PO (08:00)
[2022-09-29] MEDS: carvediloL 12.5 MG TABLET PO ×2 (08:00→20:51)
[2022-09-29] MEDS: ENOXAPARIN 40 MG/0.4 ML SYRINGE SUB-Q (08:02)
[2022-09-29] MEDS: guaiFENesin/CODEINE (*CRX) 200/20 MG 10 ML SYRUP PO (10:22)
--- NOTE | 2022-09-29 10:30 | PM.IMPN ---
Progress Note: A&P Assessment and Plan (1) COPD exacerbation: Code(s): J44.1 - Chronic obstructive pulmonary disease with (acute) exacerbation Status: Acute Assessment and Plan: Nebulizer treatment IV steroid decreased to 20mg Q6H antibiotics azithromycin and ceftriaxone continued, added Vanco sputum culture Staph aureus influenza and COVID-19 was negative Anti-tussives with codeine and Tessalon pearls for cough Pulm consult thank you for your help (2) History of hyperlipidemia: Code(s): Z86.39 - Personal history of other endocrine, nutritional and metabolic disease Status: Acute Assessment and Plan: Resume home medication (3) History of hypertension: Code(s): Z86.79 - Personal history of other diseases of the circulatory system Status: Acute Assessment and Plan: Current BP is 130/79 Continue home medications Trend blood pressure Adjust therapy as indicated (4) Orthopnea: Code(s): R06.01 - Orthopnea Status: Acute Assessment and Plan: Associated with lower extremity swelling probable acute and of chronic diastolic CHF exacerbation Echo >70% with a grade 1 diastolic dysfunction BNP 38 IV diuresis stopped at this time, as this could be causing the cramping (5) Bacteremia: Code(s): R78.81 - Bacteremia Status: Acute Assessment and Plan: Staphylococcus in 1 set of blood cultures Add vancomycin Waiting for identification Adjust antibiotics to culture results Could be a contaminant (6) Pneumonia: Code(s): J18.9 - Pneumonia, unspecified organism Status: Acute Assessment and Plan: Sputum culture grew Staphylococcus aureus Chest x-ray does show a possible pneumonia Currently on azithromycin, ceftriaxone and vancomycin Does have a cough pretty bad cough Continue to trend respiratory status On room air (7) Leukocytosis: Code(s): D72.829 - Elevated white blood cell count, unspecified Status: Acute Assessment and Plan: White blood cell count elevated at 18.9 today Probably related to the steroid use Could be a pneumonia factor and a possible bacteremia Continue trend Continue antibiotic therapy Adjust therapy as indicated Time Spent With Patient Time with patient: Greater than 35 minutes Subjective Date/time seen: 09/29/22 10:30 Interval history: 09/29/22 1030 Patient stated that he is doing about the same. His breathing is better however the cough is worse. He did state that Tessalon Perles did help however he has not gotten any cough syrup. He denies any chest pain, nausea, vomiting, diarrhea, constipation. He still does have some expiratory wheezes. WBCs are elevated at 18.9 however probably related to steroid use. 09/28/22 1330 Patient was lying in bed.? Patient stated that he is doing okay however he is just having issues with his cough.? He denies any chest pain, shortness a breath, nausea, vomiting, diarrhea, constipation, weakness or fatigue.? Patient did state that he was having some muscle spasms but is way better today.? He also stated that it just depends on how much he coughs.? Will stop IV furosemide as this is probably causing him to cramp more. 09/27/22 1000 Patient seems to be doing well today.? Patient was able to come to room air.? Patient was also walked with the tach and was able to maintain his saturations with room air as well.? He was complain severe coughing spells and muscle cramps.? Labs have been stable.? Will consult pulmonology as the patient is stating his breathing is worse. 09/27/22? 02:06 52 years old male with past medical history of hypertension hyperlipidemia quit smoking on last with day presented to the hospital with shortness of breath started 1 week ago worsening with activity associated with sore throat congestion patient also has l
--- NOTE | 2022-09-29 10:30 | P.PNIM_ITS ---
Progress Note: A&P Assessment and Plan (1) COPD exacerbation: Code(s): J44.1 - Chronic obstructive pulmonary disease with (acute) exacerbation Status: Acute Assessment and Plan: * Nebulizer treatment * IV steroid decreased to 20mg Q6H * antibiotics azithromycin and ceftriaxone continued, added Vanco * sputum culture Staph aureus * influenza and COVID-19 was negative * Anti-tussives with codeine and Tessalon pearls for cough * Pulm consult thank you for your help (2) History of hyperlipidemia: Code(s): Z86.39 - Personal history of other endocrine, nutritional and metabolic disease Status: Acute Assessment and Plan: * Resume home medication (3) History of hypertension: Code(s): Z86.79 - Personal history of other diseases of the circulatory system Status: Acute Assessment and Plan: * Current BP is 130/79 * Continue home medications * Trend blood pressure * Adjust therapy as indicated (4) Orthopnea: Code(s): R06.01 - Orthopnea Status: Acute Assessment and Plan: * Associated with lower extremity swelling probable acute and of chronic diastolic CHF exacerbation * Echo >70% with a grade 1 diastolic dysfunction * BNP 38 * IV diuresis stopped at this time, as this could be causing the cramping (5) Bacteremia: Code(s): R78.81 - Bacteremia Status: Acute Assessment and Plan: * Staphylococcus in 1 set of blood cultures * Add vancomycin * Waiting for identification * Adjust antibiotics to culture results * Could be a contaminant (6) Pneumonia: Code(s): J18.9 - Pneumonia, unspecified organism Status: Acute Assessment and Plan: * Sputum culture grew Staphylococcus aureus * Chest x-ray does show a possible pneumonia * Currently on azithromycin, ceftriaxone and vancomycin * Does have a cough pretty bad cough * Continue to trend respiratory status * On room air (7) Leukocytosis: Code(s): D72.829 - Elevated white blood cell count, unspecified Status: Acute Assessment and Plan: * White blood cell count elevated at 18.9 today * Probably related to the steroid use * Could be a pneumonia factor and a possible bacteremia * Continue trend * Continue antibiotic therapy * Adjust therapy as indicated Time Spent With Patient Time with patient: Greater than 35 minutes Subjective Date/time seen: 09/29/22 10:30 Interval history: 09/29/22 1030 Patient stated that he is doing about the same. His breathing is better however the cough is worse. He did state that Tessalon Perles did help however he has not gotten any cough syrup. He denies any chest pain, nausea, vomiting, diarrhea, constipation. He still does have some expiratory wheezes. WBCs are elevated at 18.9 however probably related to steroid use. 09/28/22 1330 Patient was lying in bed.? Patient stated that he is doing okay however he is just having issues with his cough.? He denies any chest pain, shortness a breath, nausea, vomiting, diarrhea, constipation, weakness or fatigue.? Patient did state that he was having some muscle spasms but is way better today.? He also stated that it just depends on how much he coughs.? Will stop IV furosemide as this is probably causing him to cramp more. 09/27/22 1000 Patient seems to be doing well t
--- NOTE | 2022-09-29 11:22 | PM.PNPUL ---
Progress Note: A&P Assessment and Plan (1) COPD exacerbation: Code(s): J44.1 - Chronic obstructive pulmonary disease with (acute) exacerbation Status: Acute Assessment and Plan: Patient with a history of tobacco use and 15 pack year, worsening dyspnea on exertion over the last 20 years and now presents with 10 days worsening cough, phlegm production, fever, wheezing and dyspnea on exertion. I suspect the patient has COPD but I have no PFTs or CT scan to confirm this. 09/28/2022 I agree with treating patient for COPD exacerbation with possible pneumonia given his infiltrates on his chest x-ray. RT PCR studies for influenza, RSV and COVID are negative. One blood culture out of 2 was positive for Gram-positive cocci, will await identification. At this time would continue ceftriaxone and azithromycin both started on 09/27/2022. Patient is on Solu-Medrol 40 mg IV q.8 hours and I will continue this today. I will continue albuterol and ipratropium nebulizers and increased from Q 6 hours to q.4 hours. patient currently is on room air with saturations 97%. Patient is also being diuresed with Lasix and echocardiogram has been ordered. 09/29 Patient is slowly improving. States he is 60% back to his baseline. He has less wheezing but the cough is the same. Room air saturations 95%. White blood cell count 18.9. Few end expiratory wheezes. I will decrease his Solu-Medrol to 20 mg IV q.6 and continue albuterol and ipratropium nebulizers q.4 hours. Continue ceftriaxone and azithromycin (day 3). continue guaifenesin-codeine PRN and standing Tessalon Perles 200 TID for cough. Will follow with you. Subjective Date/time seen: 09/29/22 11:22 Interval history: 09/28/2022:? This is a new pulmonary consultation for COPD exacerbation.? Patient is a 52-year-old with a history of hypertension, hyperlipidemia, tobacco use presented to [facility] on 09/27/2022 with 10 days history of cough, production of yellow phlegm, intermittent fever, wheezing and dyspnea on exertion.? He states that his now has similar symptoms.? In the emergency room the patient had a white blood cell count of? 10.3, eosinophils 0.5%,? creatinine of 0.2, CRP 8.3, troponin negative, BNP 32, procalcitonin 0.1.? chest x-ray with right perihilar and left basilar airspace disease.? Patient was admitted for COPD exacerbation and pneumonia and treated with ceftriaxone and azithromycin, Solu-Medrol, bronchodilators and Lasix 40 IV b.i.d..? His sputum showed mixed jemal, 1 of 2 blood cultures is growing out gram-positive cocci. ? Patient states he started smoking at age 11 and has quit on and off and over his life he has smoked for 15 years with 1 pack per day.? Patient also has smoked marijuana.? He denies vaping.? He was exposed to secondhand smoke from both of his parents, his and is on [place] currently.? 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 09/28 ? Today the patient tells me he has improved.? He is 50% back to his baseline.? His cough remains unchanged but he has no phlegm and some wheezing at this time.? currently saturations are 97% on room air.? His white blood cell count is 19.2 today. 09/29 Patient is slowly improving. States he is 60% back to his baseline. He has less wheezing but the cough is the same. Room air saturations 95%. White blood cell count 18.9. Few end expiratory wheezes DATA 09/28/2022: echo Summary ? 1. Left ventricular chamber dimension is normal. ? 2. Left ventricular systolic function is hyperdynamic, estimated at >70%. ? 3. There is mildly increased left ventricular wall thickness. ? 4. The left ventricular diastolic function is grade I diastolic dysfunction. ? 5. Global longitudinal strain is normal at -19 %. ? 6. There is no aortic valve stenosis. Right Ventricle ? Ri
[2022-09-29] MEDS: methylPREDNISolone SOD SUCC 40 MG VIAL 20 MG IV PUSH (17:03)
[2022-09-29] MEDS: hydroCHLOROthiazide 25 MG TABLET PO (20:51)
[2022-09-30] VITALS (12 sets, daily range): BP systolic 119–152; BP diastolic 56–62; PULSE 55–70; RESP 14–18; TEMP 36.1–36.4; O2SAT 92–97
[2022-09-30] MEDS: ALBUTEROL SULFATE NEB 2.5 MG/3 ML INH INHALATION ×2 (01:05→10:14)
[2022-09-30] MEDS: IPRATROPIUM BR 0.02% INH SOLN 0.5 MG/2.5 ML VIAL INHALATION ×2 (01:05→10:14)
[2022-09-30] MEDS: methylPREDNISolone SOD SUCC 40 MG VIAL 20 MG IV PUSH ×2 (01:33→06:29)
[2022-09-30] MEDS: cefTRIAXone 2 GM in SODIUM CHLORIDE 0.9% IV 100 ML 200 ML IVPB (03:57)
--- NOTE | 2022-09-30 05:13 | PC.NURSE ---
Pt is resting comfortably using CPAP machine. Pt has had no complaints of pain at this time. Pt expresses no needs. Pt participated and contributed in plan of care for the shift. Will continue to monitor pt.
[2022-09-30 07:00] LABS: Basophils Absolute Auto 0.1 K/mm3 (0.0-0.1); Basophils Percent Auto 0.5 % (0.2-1.2); Hematocrit 44.1 % (42.0-52.0); Hemoglobin 15.6 g/dL (14.0-18.0); Immature Granulocyte Absolute 0.37 K/mm3 (0.00-0.031); Immature Granulocyte Percent A 1.9 % (0-0.5); Lymphocytes Absolute Auto 1.62 K/mm3 (0.9-3.2); Lymphocytes Percent Auto 8.5 % (18.3-44.2); Mean Corpuscular HGB Conc 35.4 g/dl (32-36); Mean Corpuscular Hemoglobin 31.3 pg (26-34); Mean Corpuscular Volume 88.4 fl (80-100); Mean Platelet Volume 9.1 fl (7.4-10.4); Monocytes Absolute Auto 1.3 K/mm3 (0.1-0.6); Neutrophils Absolute Auto 15.6 K/mm3 (1.3-6.7); Neutrophils Percent Auto 82.1 % (45.5-73.1); Platelet Count Result 403 k/mm3 (150-375); Red Blood Count 4.99 M/mm3 (4.6-6.20); Red Cell Distribution Width 12.3 % (11.5-14.5)
[2022-09-30 07:08] LABS: Alanine Aminotransferase 125 U/L (6-50); Albumin Level 3.7 g/dL (3.5-5.1); Alkaline Phosphatase 89 U/L (38-126); Anion Gap 4 mmol/L (8-16); Aspartate Amino Transferase 53 U/L (17-59); Bilirubin,Total 0.2 mg/dL (0.2-1.3); Blood Urea Nitrogen 28 mg/dL (9-20); Calcium 8.4 mg/dL (8.4-10.2); Carbon Dioxide 34 mmol/L (22-30); Chloride 94 mmol/L (98-107); Estimated CRCL calculation 77 ml/min; Estimated Glomerular Filt Rate > 60; Glucose 124 mg/dL (65-110); Magnesium 2.5 mg/dL (1.6-2.3); Potassium 3.7 mmol/L (3.4-5.0); Sodium 132 mmol/L (137-145)
[2022-09-30] MEDS: BENZOCAINE/MENTHOL (*BKC) 18 EA LOZENGE 1 LOZENGE PO ×2 (09:06→16:50)
[2022-09-30] MEDS: ENOXAPARIN 40 MG/0.4 ML SYRINGE SUB-Q (09:06)
[2022-09-30] MEDS: PANTOPRAZOLE 40 MG TABLET PO ×2 (09:07→20:45)
[2022-09-30] MEDS: AZITHROMYCIN 250 MG TABLET 500 MG PO (09:07)
[2022-09-30] MEDS: carvediloL 12.5 MG TABLET PO ×2 (09:08→20:45)
[2022-09-30] MEDS: BENZONATATE 100 MG CAPSULE 200 MG PO ×3 (09:10→16:51)
[2022-09-30] MEDS: TAMSULOSIN HCL 0.4 MG CAPSULE PO (09:10)
[2022-09-30] MEDS: SIMVASTATIN 20 MG TABLET PO (09:10)
[2022-09-30] MEDS: LOSARTAN POTASSIUM 100 MG TABLET PO (09:10)
--- NOTE | 2022-09-30 10:14 | PM.PNPUL ---
Progress Note: A&P Assessment and Plan (1) COPD exacerbation: Code(s): J44.1 - Chronic obstructive pulmonary disease with (acute) exacerbation Status: Acute Assessment and Plan: Patient with a history of tobacco use and 15 pack year, worsening dyspnea on exertion over the last 20 years and now presents with 10 days worsening cough, phlegm production, fever, wheezing and dyspnea on exertion. I suspect the patient has COPD but I have no PFTs or CT scan to confirm this. 09/28/2022 I agree with treating patient for COPD exacerbation with possible pneumonia given his infiltrates on his chest x-ray. RT PCR studies for influenza, RSV and COVID are negative. One blood culture out of 2 was positive for Gram-positive cocci, will await identification. At this time would continue ceftriaxone and azithromycin both started on 09/27/2022. Patient is on Solu-Medrol 40 mg IV q.8 hours and I will continue this today. I will continue albuterol and ipratropium nebulizers and increased from Q 6 hours to q.4 hours. patient currently is on room air with saturations 97%. Patient is also being diuresed with Lasix and echocardiogram has been ordered. 09/29 Patient is slowly improving. States he is 60% back to his baseline. He has less wheezing but the cough is the same. Room air saturations 95%. White blood cell count 18.9. Few end expiratory wheezes. I will decrease his Solu-Medrol to 20 mg IV q.6 and continue albuterol and ipratropium nebulizers q.4 hours. Continue ceftriaxone and azithromycin (day 3). continue guaifenesin-codeine PRN and standing Tessalon Perles 200 TID for cough. 09/30 Patient continues to improve. States he is 80% back to baseline. Still has a cough but this is improved. He has room air saturations 96%. White blood cell count 19.0. He has no wheezes on exam today. I will change him to prednisone 40 mg p.o. q.day starting today, I will discontinue his nebulizers treatments and place him on Anoro Ellipta. Continue ceftriaxone and azithromycin, day 4, vanco started for staph aureus in sputum and staph in blood (which has returned as staph epidermidis). Repeat blood cultures negative. Continue Tessalon Perles. I will check a chest x-ray today looking for evidence of Staph pneumonia. If the patient remains stable on 10/01 anticipate discharge from a pulmonary perspective on these pulmonary medications Antibiotic recomendations following CXR and return of culture data Prednisone 40 mg PO X2 days Beta agonist and muscarinic antagonist that insurance will cover (Anoro Ellipta 62.5/25 at 1 puff Q day, stiolto respimat 2.5/2.5 at 1 puff BID, bevespi aerosphere 9 mcg/4.8 at 2 puffs BID, combivent respimat at 2 puffs Q 4 HR or separate albuterol and atrovent inhalers at 2 puffs Q 4 HR) Rescue albuterol 2 puffs q.4 hours p.r.n. shortness of breath or wheezing Will follow with you. Subjective Date/time seen: 09/30/22 10:14 Interval history: 09/28/2022:? This is a new pulmonary consultation for COPD exacerbation.? Patient is a 52-year-old with a history of hypertension, hyperlipidemia, tobacco use presented to [facility] on 09/27/2022 with 10 days history of cough, production of yellow phlegm, intermittent fever, wheezing and dyspnea on exertion.? He states that his now has similar symptoms.? In the emergency room the patient had a white blood cell count of? 10.3, eosinophils 0.5%,? creatinine of 0.2, CRP 8.3, troponin negative, BNP 32, procalcitonin 0.1.? chest x-ray with right perihilar and left basilar airspace disease.? Patient was admitted for COPD exacerbation and pneumonia and treated with ceftriaxone and azithromycin, Solu-Medrol, bronchodilators and Lasix 40 IV b.i.d..? His sputum showed mixed jemal, 1 of 2 blood cultures is growing out gram-positive cocci. ? Patient states he started smoking at age 11 and has quit on and off and over his life he has smoked for 15 years with 1 pack per day.? Jessica
--- NOTE | 2022-09-30 10:45 | PM.IMPN ---
Progress Note: A&P Assessment and Plan (1) COPD exacerbation: Code(s): J44.1 - Chronic obstructive pulmonary disease with (acute) exacerbation Status: Acute Assessment and Plan: Nebulizer treatment, changed to anoro Ellipta IV steroid decreased to 20mg Q6H, changed to PO prednisone antibiotics azithromycin and ceftriaxone continued, added Vanco, day 4 sputum culture Staph aureus influenza and COVID-19 was negative Anti-tussives with codeine and Tessalon pearls for cough Pulm consult thank you for your help (2) History of hyperlipidemia: Code(s): Z86.39 - Personal history of other endocrine, nutritional and metabolic disease Status: Acute Assessment and Plan: Resume home medication (3) History of hypertension: Code(s): Z86.79 - Personal history of other diseases of the circulatory system Status: Acute Assessment and Plan: Current BP is 152/60 Continue home medications Trend blood pressure Adjust therapy as indicated (4) Orthopnea: Code(s): R06.01 - Orthopnea Status: Acute Assessment and Plan: Associated with lower extremity swelling probable acute and of chronic diastolic CHF exacerbation Echo >70% with a grade 1 diastolic dysfunction BNP 38 IV diuresis stopped at this time, as this could be causing the cramping (5) Bacteremia: Code(s): R78.81 - Bacteremia Status: Acute Assessment and Plan: Staphylococcus in 1 set of blood cultures Add vancomycin Blood culture is staph epidermis, most likely a contaminate Can probably DC vanco at this time Adjust antibiotics to culture results (6) Pneumonia: Code(s): J18.9 - Pneumonia, unspecified organism Status: Acute Assessment and Plan: Sputum culture grew Staphylococcus aureus Chest x-ray does show a possible pneumonia Currently on azithromycin, ceftriaxone and vancomycin Does have a cough that remains persistent Continue to trend respiratory status On room air (7) Leukocytosis: Code(s): D72.829 - Elevated white blood cell count, unspecified Status: Acute Assessment and Plan: White blood cell count elevated at 19.0 today Probably related to the steroid use PNA could also be playing role, high doubtful Continue trend Continue antibiotic therapy Adjust therapy as indicated Time Spent With Patient Time with patient: Greater than 35 minutes Subjective Date/time seen: 09/30/22 10:45 Interval history: 09/30/22 1045 Patient was up walking the halls doing well. Patient stated that he still does have a cough however it is lot better. Patient also stated that he does feel better since the vancomycin was added. He denies any chest pain, weakness, fatigue, nausea or vomiting. Per pulmonology is instructions did change his medications around. Patient should be stable for discharge tomorrow. Awaiting chest x-ray at this time 09/29/22 1030 Patient stated that he is doing about the same. His breathing is better however the cough is worse. He did state that Tessalon Perles did help however he has not gotten any cough syrup. He denies any chest pain, nausea, vomiting, diarrhea, constipation. He still does have some expiratory wheezes. WBCs are elevated at 18.9 however probably related to steroid use. 09/28/22 1330 Patient was lying in bed.? Patient stated that he is doing okay however he is just having issues with his cough.? He denies any chest pain, shortness a breath, nausea, vomiting, diarrhea, constipation, weakness or fatigue.? Patient did state that he was having some muscle spasms but is way better today.? He also stated that it just depends on how much he coughs.? Will stop IV furosemide as this is probably causing him to cramp more. 09/27/22 1000 Patient seems to be doing well today.? Patient was able to come to room ai
--- NOTE | 2022-09-30 10:45 | P.PNIM_ITS ---
Progress Note: A&P Assessment and Plan (1) COPD exacerbation: Code(s): J44.1 - Chronic obstructive pulmonary disease with (acute) exacerbation Status: Acute Assessment and Plan: * Nebulizer treatment, changed to anoro Ellipta * IV steroid decreased to 20mg Q6H, changed to PO prednisone * antibiotics azithromycin and ceftriaxone continued, added Vanco, day 4 * sputum culture Staph aureus * influenza and COVID-19 was negative * Anti-tussives with codeine and Tessalon pearls for cough * Pulm consult thank you for your help (2) History of hyperlipidemia: Code(s): Z86.39 - Personal history of other endocrine, nutritional and metabolic disease Status: Acute Assessment and Plan: * Resume home medication (3) History of hypertension: Code(s): Z86.79 - Personal history of other diseases of the circulatory system Status: Acute Assessment and Plan: * Current BP is 152/60 * Continue home medications * Trend blood pressure * Adjust therapy as indicated (4) Orthopnea: Code(s): R06.01 - Orthopnea Status: Acute Assessment and Plan: * Associated with lower extremity swelling probable acute and of chronic diastolic CHF exacerbation * Echo >70% with a grade 1 diastolic dysfunction * BNP 38 * IV diuresis stopped at this time, as this could be causing the cramping (5) Bacteremia: Code(s): R78.81 - Bacteremia Status: Acute Assessment and Plan: * Staphylococcus in 1 set of blood cultures * Add vancomycin * Blood culture is staph epidermis, most likely a contaminate * Can probably DC vanco at this time * Adjust antibiotics to culture results (6) Pneumonia: Code(s): J18.9 - Pneumonia, unspecified organism Status: Acute Assessment and Plan: * Sputum culture grew Staphylococcus aureus * Chest x-ray does show a possible pneumonia * Currently on azithromycin, ceftriaxone and vancomycin * Does have a cough that remains persistent * Continue to trend respiratory status * On room air (7) Leukocytosis: Code(s): D72.829 - Elevated white blood cell count, unspecified Status: Acute Assessment and Plan: * White blood cell count elevated at 19.0 today * Probably related to the steroid use * PNA could also be playing role, high doubtful * Continue trend * Continue antibiotic therapy * Adjust therapy as indicated Time Spent With Patient Time with patient: Greater than 35 minutes Subjective Date/time seen: 09/30/22 10:45 Interval history: 09/30/22 1045 Patient was up walking the halls doing well. Patient stated that he still does have a cough however it is lot better. Patient also stated that he does feel better since the vancomycin was added. He denies any chest pain, weakness, fatigue, nausea or vomiting. Per pulmonology is instructions did change his medications around. Patient should be stable for discharge tomorrow. Awaiting chest x-ray at this time 09/29/22 1030 Patient stated that he is doing about the same. His breathing is better however the cough is worse. He did state that Tessalon Perles did help however he has not gotten any cough syrup. He denies any chest pain, nausea, vomiting, diarrhea, constipation. He still does have some expiratory wheezes. WBCs are elevated at 18.9 however probabl
[2022-09-30] MEDS: polyethylene glycoL 3350 17 GM POWD.PACK PO (12:06)
[2022-09-30 12:49] LABS: Pneumococcal Antigen Urine Not Detected (Not Detected)
[2022-09-30] MEDS: hydroCHLOROthiazide 25 MG TABLET PO (20:45)
[2022-10-01] VITALS (9 sets, daily range): BP systolic 114–139; BP diastolic 56–75; PULSE 50–73; RESP 16–17; TEMP 36.1–36.2; O2SAT 92–97
[2022-10-01 02:01] LABS: Vancomycin Trough 10.8 ug/mL (10.0-20.0)
[2022-10-01] MEDS: cefTRIAXone 2 GM in SODIUM CHLORIDE 0.9% IV 100 ML 200 ML IVPB (04:31)
[2022-10-01 07:02] LABS: Alanine Aminotransferase 98 U/L (6-50); Albumin Level 3.5 g/dL (3.5-5.1); Alkaline Phosphatase 82 U/L (38-126); Anion Gap 3 mmol/L (8-16); Aspartate Amino Transferase 37 U/L (17-59); Bilirubin,Total 0.2 mg/dL (0.2-1.3); Blood Urea Nitrogen 24 mg/dL (9-20); Calcium 8.1 mg/dL (8.4-10.2); Carbon Dioxide 35 mmol/L (22-30); Chloride 95 mmol/L (98-107); Estimated CRCL calculation 71 ml/min; Estimated Glomerular Filt Rate > 60; Glucose 89 mg/dL (65-110); Magnesium 2.3 mg/dL (1.6-2.3); Potassium 3.3 mmol/L (3.4-5.0); Sodium 133 mmol/L (137-145)
[2022-10-01 07:12] LABS: Basophils Absolute Auto 0.1 K/mm3 (0.0-0.1); Basophils Percent Auto 0.9 % (0.2-1.2); Eosinophils Percent Auto 0.3 % (0-4.4); Hematocrit 45.8 % (42.0-52.0); Hemoglobin 15.6 g/dL (14.0-18.0); Immature Granulocyte Absolute 0.67 K/mm3 (0.00-0.031); Immature Granulocyte Percent A 5.5 % (0-0.5); Lymphocytes Absolute Auto 3.54 K/mm3 (0.9-3.2); Lymphocytes Percent Auto 28.9 % (18.3-44.2); Mean Corpuscular HGB Conc 34.1 g/dl (32-36); Mean Corpuscular Hemoglobin 31.4 pg (26-34); Mean Corpuscular Volume 92.2 fl (80-100); Mean Platelet Volume 9.2 fl (7.4-10.4); Monocytes Absolute Auto 1.3 K/mm3 (0.1-0.6); Neutrophils Absolute Auto 6.5 K/mm3 (1.3-6.7); Neutrophils Percent Auto 53.4 % (45.5-73.1); Platelet Count Result 359 k/mm3 (150-375); Red Blood Count 4.97 M/mm3 (4.6-6.20); Red Cell Distribution Width 12.4 % (11.5-14.5); White Blood Count 12.2 K/mm3 (4.5-10.0)
[2022-10-01] MEDS: BENZOCAINE/MENTHOL (*BKC) 18 EA LOZENGE 1 LOZENGE PO ×2 (08:30→16:22)
[2022-10-01] MEDS: carvediloL 12.5 MG TABLET PO ×2 (08:31→20:37)
[2022-10-01] MEDS: LOSARTAN POTASSIUM 100 MG TABLET PO (08:31)
[2022-10-01] MEDS: SIMVASTATIN 20 MG TABLET PO (08:31)
[2022-10-01] MEDS: BENZONATATE 100 MG CAPSULE 200 MG PO ×3 (08:31→16:23)
[2022-10-01] MEDS: TAMSULOSIN HCL 0.4 MG CAPSULE PO (08:31)
[2022-10-01] MEDS: PANTOPRAZOLE 40 MG TABLET PO ×2 (08:31→20:37)
[2022-10-01] MEDS: ENOXAPARIN 40 MG/0.4 ML SYRINGE SUB-Q (08:32)
[2022-10-01] MEDS: predniSONE 20 MG TABLET 40 MG PO (08:32)
[2022-10-01] MEDS: AZITHROMYCIN 250 MG TABLET 500 MG PO (08:32)
[2022-10-01] MEDS: IPRATROPIUM BR 0.02% INH SOLN 0.5 MG/2.5 ML VIAL INHALATION (09:08)
[2022-10-01] MEDS: UMECLIDINIUM/VILANTEROL 62.5-25 MCG ELLIPTA 1 PUFF INHALATION (09:08)
[2022-10-01] MEDS: ALBUTEROL SULFATE NEB 2.5 MG/3 ML INH INHALATION ×2 (09:08→21:25)
--- NOTE | 2022-10-01 09:33 | PCRCNOTE ---
09/30/22 Anoro dose not given. Window of time for administration has passed. See next scheduled administration.
--- NOTE | 2022-10-01 11:19 | PM.PNPUL ---
Progress Note: A&P Assessment and Plan (1) COPD exacerbation: Code(s): J44.1 - Chronic obstructive pulmonary disease with (acute) exacerbation Status: Acute Assessment and Plan: Patient with a history of tobacco use and 15 pack year, worsening dyspnea on exertion over the last 20 years and now presents with 10 days worsening cough, phlegm production, fever, wheezing and dyspnea on exertion. I suspect the patient has COPD but I have no PFTs or CT scan to confirm this. 09/28/2022 I agree with treating patient for COPD exacerbation with possible pneumonia given his infiltrates on his chest x-ray. RT PCR studies for influenza, RSV and COVID are negative. One blood culture out of 2 was positive for Gram-positive cocci, will await identification. At this time would continue ceftriaxone and azithromycin both started on 09/27/2022. Patient is on Solu-Medrol 40 mg IV q.8 hours and I will continue this today. I will continue albuterol and ipratropium nebulizers and increased from Q 6 hours to q.4 hours. patient currently is on room air with saturations 97%. Patient is also being diuresed with Lasix and echocardiogram has been ordered. 09/29 Patient is slowly improving. States he is 60% back to his baseline. He has less wheezing but the cough is the same. Room air saturations 95%. White blood cell count 18.9. Few end expiratory wheezes. I will decrease his Solu-Medrol to 20 mg IV q.6 and continue albuterol and ipratropium nebulizers q.4 hours. Continue ceftriaxone and azithromycin (day 3). continue guaifenesin-codeine PRN and standing Tessalon Perles 200 TID for cough. 09/30 Patient continues to improve. States he is 80% back to baseline. Still has a cough but this is improved. He has room air saturations 96%. White blood cell count 19.0. He has no wheezes on exam today. I will change him to prednisone 40 mg p.o. q.day starting today, I will discontinue his nebulizers treatments and place him on Anoro Ellipta. Continue ceftriaxone and azithromycin, day 4, vanco started for staph aureus in sputum and staph in blood (which has returned as staph epidermidis). Repeat blood cultures negative. Continue Tessalon Perles. I will check a chest x-ray today looking for evidence of Staph pneumonia. Chest x-ray with no evidence of focal infiltrates. nebulizers discontinued and Anoro Ellipta ordered but not given. 10/01 Patient used his home CPAP on room air last night. This morning the patient complains of shortness of breath and is wheezing. Stat DuoNeb ordered. Anoro Ellipta given this morning. Prednisone 40 given this morning (day 5 steroids). white blood cell count 12.2. Will monitor the patient overnight. will continue ceftriaxone, day 5. continue vancomycin, day 2 If the patient remains stable on 10/02 anticipate discharge from a pulmonary perspective on these pulmonary medications Levaquin 750 mg PO Q day X 4 days Prednisone 40 mg PO X2 days Beta agonist and muscarinic antagonist that insurance will cover (Anoro Ellipta 62.5/25 at 1 puff Q day, stiolto respimat 2.5/2.5 at 1 puff BID, bevespi aerosphere 9 mcg/4.8 at 2 puffs BID, combivent respimat at 2 puffs Q 4 HR or separate albuterol and atrovent inhalers at 2 puffs Q 4 HR) Rescue albuterol 2 puffs q.4 hours p.r.n. shortness of breath or wheezing Will follow with you. Subjective Date/time seen: 10/01/22 11:19 Interval history: 09/28/2022:? This is a new pulmonary consultation for COPD exacerbation.? Patient is a 52-year-old with a history of hypertension, hyperlipidemia, tobacco use presented to [facility] on 09/27/2022 with 10 days history of cough, production of yellow phlegm, intermittent fever, wheezing and dyspnea on exertion.? He states that his now has similar symptoms.? In the emergency room the patient had a white blood cell count of? 10.3, eosinophils 0.5%,? creatinine of 0.2, CRP 8.3, troponin negative, BNP 32, procalcitonin 0.1
--- NOTE | 2022-10-01 15:22 | P.PNIM_ITS ---
Progress Note: A&P Assessment and Plan (1) COPD exacerbation: Code(s): J44.1 - Chronic obstructive pulmonary disease with (acute) exacerbation Status: Acute Assessment and Plan: * Nebulizer treatment, changed to anoro Ellipta * IV steroid decreased to 20mg Q6H, changed to PO prednisone * antibiotics azithromycin and ceftriaxone continued, added Vanco, day 4 * sputum culture Staph aureus * influenza and COVID-19 was negative * Anti-tussives with codeine and Tessalon pearls for cough * Pulm consult thank you for your help * 10/01/2022 interval history: 52-year-old male with history of smoking and COPD presented with a cough and shortness of breath is found to have exacerbation of COPD, this morning patient continued to complain of cough shortness of breath and currently receiving DuoNeb, patient seen by pulmonology started on the patient on Anoro Ellipta, prednisone 40 mg q.day there is also concern for pneumonia and being treated with ceftriaxone and vancomycin, sputum culture is growing Staph aureus will follow-up sensitivity, 1 bowel with blood culture is growing Staph epidermidis suspect most likely contaminant, will continue to monitor will have a PT OT evaluate the patient. patient states he stopped smoking last month. (2) History of hyperlipidemia: Code(s): Z86.39 - Personal history of other endocrine, nutritional and metabolic disease Status: Acute Assessment and Plan: * Resume home medication (3) History of hypertension: Code(s): Z86.79 - Personal history of other diseases of the circulatory system Status: Acute Assessment and Plan: * Current BP is 152/60 * Continue home medications * Trend blood pressure * Adjust therapy as indicated (4) Orthopnea: Code(s): R06.01 - Orthopnea Status: Acute Assessment and Plan: * Associated with lower extremity swelling probable acute and of chronic diastolic CHF exacerbation * Echo >70% with a grade 1 diastolic dysfunction * BNP 38 * IV diuresis stopped at this time, as this could be causing the cramping (5) Bacteremia: Code(s): R78.81 - Bacteremia Status: Acute Assessment and Plan: * Staphylococcus in 1 set of blood cultures * Add vancomycin * Blood culture is staph epidermis, most likely a contaminate * Can probably DC vanco at this time * Adjust antibiotics to culture results (6) Pneumonia: Code(s): J18.9 - Pneumonia, unspecified organism Status: Acute Assessment and Plan: * Sputum culture grew Staphylococcus aureus * Chest x-ray does show a possible pneumonia * Currently on azithromycin, ceftriaxone and vancomycin * Does have a cough that remains persistent * Continue to trend respiratory status * On room air (7) Leukocytosis: Code(s): D72.829 - Elevated white blood cell count, unspecified Status: Acute Assessment and Plan: * White blood cell count elevated at 19.0 today * Probably related to the steroid use * PNA could also be playing role, high doubtful * Continue trend * Continue antibiotic therapy * Adjust therapy as indicated Subjective Date/time seen: 10/01/22 15:22 Interval history: 10/01/2022 interval history: 52-year-old male with history of smoking and COPD presented with a cough and shortness of breath is found to have exacerbation of COPD, thi
--- NOTE | 2022-10-01 15:22 | PM.IMPN ---
Progress Note: A&P Assessment and Plan (1) COPD exacerbation: Code(s): J44.1 - Chronic obstructive pulmonary disease with (acute) exacerbation Status: Acute Assessment and Plan: Nebulizer treatment, changed to anoro Ellipta IV steroid decreased to 20mg Q6H, changed to PO prednisone antibiotics azithromycin and ceftriaxone continued, added Vanco, day 4 sputum culture Staph aureus influenza and COVID-19 was negative Anti-tussives with codeine and Tessalon pearls for cough Pulm consult thank you for your help 10/01/2022 interval history: 52-year-old male with history of smoking and COPD presented with a cough and shortness of breath is found to have exacerbation of COPD, this morning patient continued to complain of cough shortness of breath and currently receiving DuoNeb, patient seen by pulmonology started on the patient on Anoro Ellipta, prednisone 40 mg q.day there is also concern for pneumonia and being treated with ceftriaxone and vancomycin, sputum culture is growing Staph aureus will follow-up sensitivity, 1 bowel with blood culture is growing Staph epidermidis suspect most likely contaminant, will continue to monitor will have a PT OT evaluate the patient. patient states he stopped smoking last month. (2) History of hyperlipidemia: Code(s): Z86.39 - Personal history of other endocrine, nutritional and metabolic disease Status: Acute Assessment and Plan: Resume home medication (3) History of hypertension: Code(s): Z86.79 - Personal history of other diseases of the circulatory system Status: Acute Assessment and Plan: Current BP is 152/60 Continue home medications Trend blood pressure Adjust therapy as indicated (4) Orthopnea: Code(s): R06.01 - Orthopnea Status: Acute Assessment and Plan: Associated with lower extremity swelling probable acute and of chronic diastolic CHF exacerbation Echo >70% with a grade 1 diastolic dysfunction BNP 38 IV diuresis stopped at this time, as this could be causing the cramping (5) Bacteremia: Code(s): R78.81 - Bacteremia Status: Acute Assessment and Plan: Staphylococcus in 1 set of blood cultures Add vancomycin Blood culture is staph epidermis, most likely a contaminate Can probably DC vanco at this time Adjust antibiotics to culture results (6) Pneumonia: Code(s): J18.9 - Pneumonia, unspecified organism Status: Acute Assessment and Plan: Sputum culture grew Staphylococcus aureus Chest x-ray does show a possible pneumonia Currently on azithromycin, ceftriaxone and vancomycin Does have a cough that remains persistent Continue to trend respiratory status On room air (7) Leukocytosis: Code(s): D72.829 - Elevated white blood cell count, unspecified Status: Acute Assessment and Plan: White blood cell count elevated at 19.0 today Probably related to the steroid use PNA could also be playing role, high doubtful Continue trend Continue antibiotic therapy Adjust therapy as indicated Subjective Date/time seen: 10/01/22 15:22 Interval history: 10/01/2022 interval history: 52-year-old male with history of smoking and COPD presented with a cough and shortness of breath is found to have exacerbation of COPD, this morning patient continued to complain of cough shortness of breath and currently receiving DuoNeb, patient seen by pulmonology started on the patient on Anoro Ellipta, prednisone 40 mg q.day there is also concern for pneumonia and being treated with ceftriaxone and vancomycin, sputum culture is growing Staph aureus will follow-up sensitivity, 1 bowel with blood culture is growing Staph epidermidis suspect most likely contaminant, will continue to monitor will have a PT OT evaluate the patient. patient states he stopped smoking last month
[2022-10-01] MEDS: hydroCHLOROthiazide 25 MG TABLET PO (20:37)
[2022-10-02 06:00] VITALS: BP 136/72; PULSE 51; RESP 18; TEMP 35.9; O2SAT 99
[2022-10-02 08:50] LABS: Hematocrit 44.4 % (42.0-52.0); Hemoglobin 15.3 g/dL (14.0-18.0); Mean Corpuscular HGB Conc 34.5 g/dl (32-36); Mean Corpuscular Hemoglobin 31.3 pg (26-34); Mean Corpuscular Volume 90.8 fl (80-100); Mean Platelet Volume 8.7 fl (7.4-10.4); Platelet Count Result 343 k/mm3 (150-375); Red Blood Count 4.89 M/mm3 (4.6-6.20); Red Cell Distribution Width 12.3 % (11.5-14.5); White Blood Count 13.3 K/mm3 (4.5-10.0)
[2022-10-02 09:02] LABS: Anion Gap 4 mmol/L (8-16); Blood Urea Nitrogen 25 mg/dL (9-20); Calcium 8.3 mg/dL (8.4-10.2); Carbon Dioxide 33 mmol/L (22-30); Chloride 99 mmol/L (98-107); Estimated CRCL calculation 77 ml/min; Estimated Glomerular Filt Rate > 60; Glucose 95 mg/dL (65-110); Magnesium 2.3 mg/dL (1.6-2.3); Potassium 3.7 mmol/L (3.4-5.0); Sodium 136 mmol/L (137-145)
[2022-10-02] MEDS: predniSONE 20 MG TABLET 40 MG PO (10:01)
[2022-10-02] MEDS: ENOXAPARIN 40 MG/0.4 ML SYRINGE SUB-Q (10:01)
[2022-10-02] MEDS: BENZONATATE 100 MG CAPSULE 200 MG PO (10:01)
[2022-10-02] MEDS: TAMSULOSIN HCL 0.4 MG CAPSULE PO (10:02)
[2022-10-02] MEDS: PANTOPRAZOLE 40 MG TABLET PO (10:02)
[2022-10-02] MEDS: LOSARTAN POTASSIUM 100 MG TABLET PO (10:02)
[2022-10-02] MEDS: SIMVASTATIN 20 MG TABLET PO (10:02)
[2022-10-02 10:03] VITALS: PULSE 65
[2022-10-02] MEDS: carvediloL 12.5 MG TABLET PO (10:03)
--- NOTE | 2022-10-02 10:16 | PM.PNPUL ---
Progress Note: A&P Assessment and Plan (1) COPD exacerbation: Code(s): J44.1 - Chronic obstructive pulmonary disease with (acute) exacerbation Status: Acute Assessment and Plan: Patient with a history of tobacco use and 25 pack year (quit 09/24/2022), worsening dyspnea on exertion over the last 20 years and now presents with 10 days worsening cough, phlegm production, fever, wheezing and dyspnea on exertion. I suspect the patient has COPD but I have no PFTs or CT scan to confirm this. 09/28/2022 I agree with treating patient for COPD exacerbation with possible pneumonia given his infiltrates on his chest x-ray. RT PCR studies for influenza, RSV and COVID are negative. One blood culture out of 2 was positive for Gram-positive cocci, will await identification. At this time would continue ceftriaxone and azithromycin both started on 09/27/2022. Patient is on Solu-Medrol 40 mg IV q.8 hours and I will continue this today. I will continue albuterol and ipratropium nebulizers and increased from Q 6 hours to q.4 hours. patient currently is on room air with saturations 97%. Patient is also being diuresed with Lasix and echocardiogram has been ordered. 09/29 Patient is slowly improving. States he is 60% back to his baseline. He has less wheezing but the cough is the same. Room air saturations 95%. White blood cell count 18.9. Few end expiratory wheezes. I will decrease his Solu-Medrol to 20 mg IV q.6 and continue albuterol and ipratropium nebulizers q.4 hours. Continue ceftriaxone and azithromycin (day 3). continue guaifenesin-codeine PRN and standing Tessalon Perles 200 TID for cough. 09/30 Patient continues to improve. States he is 80% back to baseline. Still has a cough but this is improved. He has room air saturations 96%. White blood cell count 19.0. He has no wheezes on exam today. I will change him to prednisone 40 mg p.o. q.day starting today, I will discontinue his nebulizers treatments and place him on Anoro Ellipta. Continue ceftriaxone and azithromycin, day 4, vanco started for staph aureus in sputum and staph in blood (which has returned as staph epidermidis). Repeat blood cultures negative. Continue Tessalon Perles. I will check a chest x-ray today looking for evidence of Staph pneumonia. Chest x-ray with no evidence of focal infiltrates. nebulizers discontinued and Anoro Ellipta ordered but not given. 10/01 Patient used his home CPAP on room air last night. This morning the patient complains of shortness of breath and is wheezing. Stat DuoNeb ordered. Anoro Ellipta given this morning. Prednisone 40 given this morning (day 5 steroids). white blood cell count 12.2. Will monitor the patient overnight. will continue ceftriaxone, day 5. continue vancomycin, day 2 10/02 Patient used his home CPAP on room air and did well last night. patient states his [employer] company is called [employer] telephone [phone]. Patient states he is breathing near his baseline. He has no wheezing on exam. From a pulmonary perspective patient is stable for discharge home on these pulmonary medications Levaquin 750 mg PO Q day X 4 days Prednisone 40 mg PO X2 days Beta agonist and muscarinic antagonist that insurance will cover (Anoro Ellipta 62.5/25 at 1 puff Q day, stiolto respimat 2.5/2.5 at 1 puff BID, bevespi aerosphere 9 mcg/4.8 at 2 puffs BID, combivent respimat at 2 puffs Q 4 HR or separate albuterol and atrovent inhalers at 2 puffs Q 4 HR) Rescue albuterol 2 puffs q.4 hours p.r.n. shortness of breath or wheezing Follow-up in Pulmonary Clinic in 3-4 weeks. I gave the patient our business card and informed our district or district office director. Patient would benefit from outpatient PFTs, 6 minutes walk, overnight oximetry and will need a new local [employer] for his CPAP machine and supplies. Discussed with Dr. Hauser, will sign off, call with questions. Subjective Date/time seen: 10/02/22 10:16 Interval history:
--- NOTE | 2022-10-02 10:26 | P.DS_ITS ---
DS: Admitting Diagnosis Discharge Date 10/02/2022 Admitting Diagnosis shortness of breath DS: Discharge Diagnosis Discharge Diagnosis (1) COPD exacerbation: Code(s): J44.1 - Chronic obstructive pulmonary disease with (acute) exacerbation Status: Acute Assessment and Plan: * Nebulizer treatment, changed to anoro Ellipta * IV steroid decreased to 20mg Q6H, changed to PO prednisone * antibiotics azithromycin and ceftriaxone continued, added Vanco, day 4 * sputum culture Staph aureus * influenza and COVID-19 was negative * Anti-tussives with codeine and Tessalon pearls for cough * Pulm consult thank you for your help * 10/01/2022 interval history: 52-year-old male with history of smoking and COPD presented with a cough and shortness of breath is found to have exacerbation of COPD, this morning patient continued to complain of cough shortness of breath and currently receiving DuoNeb, patient seen by pulmonology started on the patient on Anoro Ellipta, prednisone 40 mg q.day there is also concern for pneumonia and being treated with ceftriaxone and vancomycin, sputum culture is growing Staph aureus will follow-up sensitivity, 1 bowel with blood culture is growing Staph epidermidis suspect most likely contaminant, will continue to monitor will have a PT OT evaluate the patient. patient states he stopped smoking last month. (2) History of hyperlipidemia: Code(s): Z86.39 - Personal history of other endocrine, nutritional and metabolic disease Status: Acute Assessment and Plan: * Resume home medication (3) History of hypertension: Code(s): Z86.79 - Personal history of other diseases of the circulatory system Status: Acute Assessment and Plan: * Current BP is 152/60 * Continue home medications * Trend blood pressure * Adjust therapy as indicated (4) Orthopnea: Code(s): R06.01 - Orthopnea Status: Acute Assessment and Plan: * Associated with lower extremity swelling probable acute and of chronic diastolic CHF exacerbation * Echo >70% with a grade 1 diastolic dysfunction * BNP 38 * IV diuresis stopped at this time, as this could be causing the cramping (5) Bacteremia: Code(s): R78.81 - Bacteremia Status: Acute Assessment and Plan: * Staphylococcus in 1 set of blood cultures * Add vancomycin * Blood culture is staph epidermis, most likely a contaminate * Can probably DC vanco at this time * Adjust antibiotics to culture results (6) Pneumonia: Code(s): J18.9 - Pneumonia, unspecified organism Status: Acute Assessment and Plan: * Sputum culture grew Staphylococcus aureus * Chest x-ray does show a possible pneumonia * Currently on azithromycin, ceftriaxone and vancomycin * Does have a cough that remains persistent * Continue to trend respiratory status * On room air (7) Leukocytosis: Code(s): D72.829 - Elevated white blood cell count, unspecified Status: Acute Assessment and Plan: * White blood cell count elevated at 19.0 today * Probably related to the steroid use * PNA could also be playing role, high doubtful * Continue trend * Continue antibiotic therapy * Adjust therapy as indicated DS: Summary Hospital Course Reason for hospitalization: Chief Complaint: 52 years old male with past medical history of
--- NOTE | 2022-10-02 10:26 | PM.DS ---
DS: Admitting Diagnosis Discharge Date 10/02/2022 Admitting Diagnosis shortness of breath DS: Discharge Diagnosis Discharge Diagnosis (1) COPD exacerbation: Code(s): J44.1 - Chronic obstructive pulmonary disease with (acute) exacerbation Status: Acute Assessment and Plan: Nebulizer treatment, changed to anoro Ellipta IV steroid decreased to 20mg Q6H, changed to PO prednisone antibiotics azithromycin and ceftriaxone continued, added Vanco, day 4 sputum culture Staph aureus influenza and COVID-19 was negative Anti-tussives with codeine and Tessalon pearls for cough Pulm consult thank you for your help 10/01/2022 interval history: 52-year-old male with history of smoking and COPD presented with a cough and shortness of breath is found to have exacerbation of COPD, this morning patient continued to complain of cough shortness of breath and currently receiving DuoNeb, patient seen by pulmonology started on the patient on Anoro Ellipta, prednisone 40 mg q.day there is also concern for pneumonia and being treated with ceftriaxone and vancomycin, sputum culture is growing Staph aureus will follow-up sensitivity, 1 bowel with blood culture is growing Staph epidermidis suspect most likely contaminant, will continue to monitor will have a PT OT evaluate the patient. patient states he stopped smoking last month. (2) History of hyperlipidemia: Code(s): Z86.39 - Personal history of other endocrine, nutritional and metabolic disease Status: Acute Assessment and Plan: Resume home medication (3) History of hypertension: Code(s): Z86.79 - Personal history of other diseases of the circulatory system Status: Acute Assessment and Plan: Current BP is 152/60 Continue home medications Trend blood pressure Adjust therapy as indicated (4) Orthopnea: Code(s): R06.01 - Orthopnea Status: Acute Assessment and Plan: Associated with lower extremity swelling probable acute and of chronic diastolic CHF exacerbation Echo >70% with a grade 1 diastolic dysfunction BNP 38 IV diuresis stopped at this time, as this could be causing the cramping (5) Bacteremia: Code(s): R78.81 - Bacteremia Status: Acute Assessment and Plan: Staphylococcus in 1 set of blood cultures Add vancomycin Blood culture is staph epidermis, most likely a contaminate Can probably DC vanco at this time Adjust antibiotics to culture results (6) Pneumonia: Code(s): J18.9 - Pneumonia, unspecified organism Status: Acute Assessment and Plan: Sputum culture grew Staphylococcus aureus Chest x-ray does show a possible pneumonia Currently on azithromycin, ceftriaxone and vancomycin Does have a cough that remains persistent Continue to trend respiratory status On room air (7) Leukocytosis: Code(s): D72.829 - Elevated white blood cell count, unspecified Status: Acute Assessment and Plan: White blood cell count elevated at 19.0 today Probably related to the steroid use PNA could also be playing role, high doubtful Continue trend Continue antibiotic therapy Adjust therapy as indicated DS: Summary Hospital Course Reason for hospitalization: Chief Complaint: 52 years old male with past medical history of hypertension hyperlipidemia quit smoking on last with day presented to the hospital with shortness of breath started 1 week ago worsening with activity associated with sore throat congestion patient also has lower extremity swelling and complaining of orthopnea denies fever or chills patient was given nebulizer treatment and steroid in the ER without improvement patient will be admitted to the hospital for COPD exacerbation evaluation and treatment Hospital Course: 52-year-old male with history of smoking and COPD presented with a cough and shortness
[2022-10-02] MEDS: UMECLIDINIUM/VILANTEROL 62.5-25 MCG ELLIPTA 1 PUFF INHALATION (10:32)
[2022-10-02 13:59] VITALS: BP 128/81; PULSE 63; RESP 19; TEMP 36.2; O2SAT 97
== END 2022-10-02 14:25 | disposition home or self-care (01) | DRG 192 ==
LOC: ANHED 09-27 02:13 → ANH3MEDSUR 09-27 02:20
PROVIDERS: Family Medicine; Nurse Practitioner; Physician Assistant; Admitting Provider Internal Medicine; Emergency Provider Emergency Medicine; PCP Physician Assistant; Visit Provider Physician Assistant
DX: J44.1 Chronic obstructive pulmonary disease with (acute) exacerbation (principal); I10 Essential (primary) hypertension; E78.5 Hyperlipidemia, unspecified; R25.2 Cramp and spasm; Z20.822 Contact with and (suspected) exposure to COVID-19; Z87.891 Personal history of nicotine dependence; Z28.310 Unvaccinated for COVID-19; Z79.82 Long term (current) use of aspirin
CPT/HCPCS: 36415; 71046; 80048; 80053; 80202; 83735; 83880; 84132; 84145; 84484; 85025; 85027; 86140; 87040; 87070; 87077; 87081; 87147; 87181; 87186; 87205; 87637; 87899; 93306; 94640; 96365; 96374; 96375; 96376; 99285; A9270; G0378; J0696; J1650; J1940; J2920; J2930; J3370; J7050; J7512

== ENCOUNTER 2022-10-12 12:39 | Outpatient (CLI) | payer OTHER, SELFPAY ==
--- NOTE | ~2022-10-12 | XR_ITS ---
Clinical Indication: Pneumonia PA and lateral views of the chest: Comparison: 09/30/2022 Findings: The lungs are clear, without evidence of focal consolidation or pleural effusion. Cardiome diastinal silhouette is within normal limits. Bones and soft tissues are unremarkable. Impression: Normal chest. Reviewed, dictated and finalized at [facility]. NG STAMPER Impression: Normal chest.
== END 2022-10-12 12:40 | disposition home or self-care (01) ==
PROVIDERS: PCP Physician Assistant; Visit Provider Physician Assistant
DX: Z87.01 Personal history of pneumonia (recurrent) (principal)
CPT/HCPCS: 71046

== ENCOUNTER 2022-11-12 09:14 | Outpatient (CLI) | payer OTHER, SELFPAY ==
--- NOTE | 2022-11-12 14:18 | WPDSIXMINUTE ---
Six Minute Walk Procedure Procedure Performed Pulmonary Stress Test (6 min walk) Six Minute Walk Six Minute Walk: This is a 6 minute walk test. The test was performed and interpreted in accordance with the 2014 ERS/ATS task force guidelines. Findings: The patient's resting room air oxygen saturation measured by pulse oximetry was 96% and heart rate was 73 bpm. Patient ambulated for 457 meters and oxygen saturation remained 96 to 98%. Heart rate at the end of the study was 91 bpm. The patient did not qualify for supplemental oxygen at rest or with ambulation. There are no prior studies for comparison.
--- NOTE | 2022-11-12 14:19 | WPDPFTINT ---
PFT Procedure Performed PFT Procedure Performed Spirometry with Pre/Post Bronchodilator Plethysmography (Lung Vol) Diffusing Cap (DLCO) Flow Vol Loop PFT Interpretation This is a pulmonary function test with pre and post-bronchodilator spirometry, plethysmography and diffusing capacity. The test was performed and results interpreted in accordance with the 2019 and 2005 ATS/ERS Task Force guidelines respectively using the Global Lung Function Initiative-2012 reference equations. Patient demonstrated good effort and cooperation. Reproducibility criteria were met. The quality of the pre bronchodilator spirometry maneuver was Grade B and post bronchodilator spirometry maneuver was Grade B. Findings: Spirometry: The contour the inspiratory and expiratory flow tracing are normal. The pre bronchodilator FVC is 3.93 L, 86% predicted. The pre bronchodilator FEV1 is 3.27 L, 92% predicted. The pre bronchodilator FEV1: FVC ratio was 83%. The post bronchodilator FVC is 4.18 L, representing a 6% increase. The post bronchodilator FEV1 is 3.41 L, representing a 4% increase. The post bronchodilator FEV1: FVC ratio was 82%. Plethysmography: The total lung capacity is 6.49 L, 98% predicted. The functional residual capacity is 2.47 L, 73% predicted. The residual volume is 2.15 L, 107% predicted. Diffusing capacity: The diffusing capacity unadjusted for hemoglobin and carboxyhemoglobin is 26.7, 92% predicted. The diffusing capacity adjusted for alveolar volume is 4.43, 98% predicted. Impression: The spirometry is normal without evidence of an obstructive abnormality. There is no significant improvement after inhaling a single dose of albuterol. The lung volumes are normal. The diffusing capacity is normal. There are no prior studies for comparison
== END 2022-11-12 09:15 | disposition home or self-care (01) ==
LOC: ANHPFT 09:16
PROVIDERS: PCP Physician Assistant; Visit Provider Internal Medicine Pulmonary Disease
DX: R06.00 Dyspnea, unspecified (principal); J40 Bronchitis, not specified as acute or chronic; Z72.0 Tobacco use
CPT/HCPCS: 94060; 94618; 94726; 94729

== ENCOUNTER 2023-01-01 14:59 | Observation (INO) | payer OTHER, SELFPAY ==
[2023-01-01] VITALS (30 sets, daily range): BP systolic 109–167; BP diastolic 46–87; PULSE 80–104; RESP 14–25; TEMP 36.4–38.4; O2SAT 93–100; BMI 33.2
--- NOTE | ~2023-01-01 | XR_ITS ---
XR chest 2V DATE: 01/01/2023 16:17 INDICATION: Cough and shortness of breath for one week TECHNIQUE: PA and lateral views COMPARISON: 10/12/2022 PA and lateral chest FINDINGS: Normal heart size. No hilar or mediastinal enlargement. No pulmonary infiltrate or consolid ation, pleural effusion or pulmonary vascular congestion or pneumothorax. Included skeletal structure s are unremarkable. IMPRESSION: No active cardiopulmonary disease Reviewed, dictated and finalized at location [facility]. [employer] CLERK
--- NOTE | 2023-01-01 16:14 | ED.URI ---
HPI - URI/Sore Throat General Chief Complaint: Upper Respiratory Infection Stated Complaint: cough/congestion Time Seen by Provider: 01/01/23 15:41 History of Present Illness HPI Narrative: Patient is a 52-year-old male with a history of COPD presenting with URI symptoms. Patient states that for the last week he has had a persistent productive cough. States that he sometimes coughs so hard that he almost blacks out. He denies any chest pain or tightness. States that he has been using his inhaler intermittently which has not been helping. Also reports a fever all week. Denies headaches, numbness or weakness, abdominal pain, nausea or vomiting, diarrhea, leg swelling. Patient's states he is wheezy like he was last time that he had to be admitted for COPD. Related Data Home Medications Medication Instructions Recorded Confirmed losartan 50 mg tablet 100 mg PO DAILY 08/27/20 01/01/23 simvastatin 20 mg tablet 20 mg PO DAILY 08/27/20 01/01/23 tamsulosin 0.4 mg capsule 0.4 mg PO DAILY 08/27/20 01/01/23 carvedilol 12.5 mg tablet 12.5 mg PO BID 09/27/22 01/01/23 hydrochlorothiazide 25 mg tablet 25 mg PO QHS 09/27/22 01/01/23 Allergies Allergy/AdvReac Type Severity Reaction Status Date / Time No Known Allergies Allergy Verified 01/01/23 22:11 Review of Systems Review of Systems: All systems reviewed & are unremarkable except as noted in HPI and below PMFSH Past Medical History Medical History History of hyperlipidemia History of hypertension Family History Family History Mother Diabetes mellitus Hypertension Father Diabetes mellitus Acute myocardial infarction Hypertension Grandparent Malignant neoplasm of prostate Acute myocardial infarction Cancer Other Acute myocardial infarction Social History Social History Smoking packs per day: 1 Smoking cigarettes per day: 20.0 Smoking status: Former smoker Tobacco type: cigarettes Smoking end date: 09/24/22 Alcohol intake: current Drinks per week: 16 Substance use: current Substance use type: marijuana Lack of Transportation: No Lack of Food: Never True Current Housing: I Have Housing Concerned About Future Housing: No Difficulty Paying Gas/Electric Bills: YES Difficulty Paying for Meds: No Currently Unemployed: No Education: High School Diploma/GED Difficulty w/ Childcare or Family Care: No Spiritual care concerns: No Exam Narrative: GENERAL: Nontoxic, in no acute distress, pleasant and cooperative HEAD: Normocephalic, atraumatic. EYES: PERRLA and EOMI. ENT: Nares clear, no rhinorrhea or epistaxis. Mucous membranes moist. NECK: Supple. CHEST: Very tight bilaterally, significant wheezing, patient coughing intermittently HEART: Regular rate and rhythm ABDOMEN: Soft, nontender, nondistended EXTREMITIES: Normal range of motion. No edema. SKIN: Warm, dry, no rash. NEURO: No focal deficits. Alert and oriented x3. PSYCH: Normal mood and affect. Course Vital Signs Vital signs: Vital Signs Temperature 101.1 F H 01/01/23 15:10 Pulse Rate 100 01/01/23 15:10 Respiratory Rate 16 01/01/23 15:10 Blood Pressure 109/46 L 01/01/23 15:10 Pulse Oximetry 100 01/01/23 15:10 Oxygen Delivery Room Air 01/01/23 15:10 Temperature 97.8 F 01/03/23 06:00 Pulse Rate 78 01/03/23 13:17 Respiratory Rate 18 01/03/23 13:17 Blood Pressure 164/65 H 01/03/23 06:00 Pulse Oximetry 97 01/03/23 09:30 Oxygen Delivery Room Air 01/03/23 09:30 Fraction of Inspired Oxygen 21 01/02/23 00:20 MDM - URI/Sore Throat MDM Narrative Medical decision making narrative: Patient is a 52-year-old male presenting with shortness of breath and productive cough. Patient febrile on arrival to 101.1. Vitals are otherwise within normal limits.
[2023-01-01 17:08] LABS: Influenza A QL RT-PCR Negative (Negative); Influenza B QL RT-PCR Negative (Negative); RSV RNA, RT-PCR Negative (Negative); SARS-CoV-2 RNA PCR Negative
[2023-01-01] MEDS: IPRATROPIUM BR 0.02% INH SOLN 0.5 MG/2.5 ML VIAL INHALATION ×2 (17:22→18:56)
[2023-01-01] MEDS: ALBUTEROL SULFATE NEB 2.5 MG/3 ML INH 10 MG INHALATION ×2 (17:22→18:56)
[2023-01-01 17:45] LABS: Basophils Percent Auto 0.5 % (0.2-1.2); Eosinophils Absolute Auto 0.1 K/mm3 (0-0.3); Eosinophils Percent Auto 0.6 % (0-4.4); Hematocrit 43.9 % (42.0-52.0); Hemoglobin 15.5 g/dL (14.0-18.0); Immature Granulocyte Absolute 0.01 K/mm3 (0.00-0.031); Immature Granulocyte Percent A 0.1 % (0-0.5); Lymphocytes Absolute Auto 2.15 K/mm3 (0.9-3.2); Mean Corpuscular HGB Conc 35.3 g/dl (32-36); Mean Corpuscular Hemoglobin 30.4 pg (26-34); Mean Corpuscular Volume 86.1 fl (80-100); Mean Platelet Volume 9.1 fl (7.4-10.4); Monocytes Absolute Auto 1.1 K/mm3 (0.1-0.6); Neutrophils Absolute Auto 4.6 K/mm3 (1.3-6.7); Neutrophils Percent Auto 57.8 % (45.5-73.1); Platelet Count Result 192 k/mm3 (150-375); Red Cell Distribution Width 12.4 % (11.5-14.5)
[2023-01-01] MEDS: SODIUM CHLORIDE 0.9% IV 1,000 ML 999 ML IV CONT (17:47)
[2023-01-01] MEDS: methylPREDNISolone SOD SUCC 125 MG VIAL IV PUSH (17:48)
[2023-01-01] MEDS: KETOROLAC 15 MG/ML VIAL (*BKC) IV PUSH (17:50)
[2023-01-01] MEDS: AZITHROMYCIN 250 MG TABLET 500 MG PO (17:53)
[2023-01-01 17:59] LABS: Alanine Aminotransferase 27 U/L (6-50); Albumin Level 4.1 g/dL (3.5-5.1); Alkaline Phosphatase 83 U/L (38-126); Anion Gap 6 mmol/L (8-16); Aspartate Amino Transferase 31 U/L (17-59); Bilirubin,Total 0.6 mg/dL (0.2-1.3); Blood Urea Nitrogen 28 mg/dL (9-20); Calcium 8.7 mg/dL (8.4-10.2); Carbon Dioxide 32 mmol/L (22-30); Chloride 94 mmol/L (98-107); Estimated CRCL calculation 72 ml/min; Estimated Glomerular Filt Rate > 60; Glucose 109 mg/dL (65-110); Potassium 3.6 mmol/L (3.4-5.0); Sodium 132 mmol/L (137-145)
--- NOTE | 2023-01-01 20:35 | PC.NURSE ---
Report called to Víctor in 3rd Med Surg
--- NOTE | 2023-01-01 20:36 | PM.IMHP ---
H&P: HPI History of Present Illness Date/Time: 01/01/23 20:36 Chief Complaint: Shortness of breath Narrative: This is a 52-year-old male with past medical history significant for COPD/emphysema, former tobacco user, patient presents to the emergency room due to 4 days of shortness of breath cough sputum production of yellow sputum, patient denies any fevers, rigors or chills, states that shortness of breath has become worsened and decided to come to the emergency for this reason. In emergency room patient received several nebulizer treatments however continue to have significant shortness of breath with wheezing. patient is also status post excision of skin lesion of his left lower extremity with wound dehiscence. Preliminary workup was significant for a chest x-ray was reported as: FINDINGS: Normal heart size. No hilar or mediastinal enlargement. No pulmonary infiltrate or consolidation, pleural effusion or pulmonary vascular congestion or pneumothorax. Included skeletal structures are unremarkable.? IMPRESSION: ? No active cardiopulmonary disease Patient is up negative for influenza type A, influenza type B RSV and COVID-19 Review of Systems Review of Systems: SHORTNESS OF BREATH COUGH SPUTUM PRODUCTION WOUND DEHISCENCE Constitutional: Constitutional: Denies chills, Denies fatigue, Denies fever(s), Denies lethargy, Denies malaise and Denies weakness Eyes: Eyes: Denies change in vision ENT: Denies dysphagia and Denies odynophagia Cardiovascular: Cardiovascular: Denies chest pain, Reports leg edema and Denies radiating jaw, neck or arm pain Respiratory: Respiratory: Reports change in phlegm color, Reports cough, Reports excessive phlegm production, Reports dyspnea, Reports dyspnea on exertion and Reports wheezing Gastrointestinal: Gastrointestinal: Denies abdominal pain, Denies dyspepsia, Denies heartburn, Denies nausea and Denies vomiting Genitourinary: Genitourinary: Denies dysuria Musculoskeletal: Musculoskeletal: Denies back pain, Denies joint swelling and Denies muscle weakness Integumentary/Breasts: Skin/Breast: Reports wounds (Wound dehiscence left lower extremity) Neurologic: Denies focal weakness and Denies Sensory deficit (Neuro) Psychiatric: Psychiatric: Reports no additional psychiatric complaints and Reports as per HPI Endocrine: Endocrine: Denies cold intolerance, Denies flushing, Denies heat intolerance, Denies polyphagia, Denies polydipsia and Denies palpitations Hematologic/Lymphatic: Hematologic/Lymphatic: Reports no additional hematologic/lymphatic complaints and Reports as per HPI Allergic/Immunologic: Allergic/Immunologic: Reports no additional allergic/immunologic complaints and Reports as per HPI [facility] Past Medical History Medical History (Updated 01/02/23 @ 00:58 by Keshia Miranda MD) History of hyperlipidemia History of hypertension Family History Family History (Updated 01/01/23 @ 22:23 by Víctor Galarza RN) Mother Diabetes mellitus Hypertension Father Diabetes mellitus Acute myocardial infarction Hypertension Grandparent Malignant neoplasm of prostate Acute myocardial infarction Cancer Other Acute myocardial infarction Social History Social History Smoking packs per day: 1 Smoking cigarettes per day: 20.0 Smoking status: Former smoker Tobacco type: cigarettes Smoking end date: 09/24/22 Alcohol intake: current Drinks per week: 16 Substance use: current Substance use type: marijuana Lack of Transportation: No Lack of Food: Never True Current Housing: I Have Housing Concerned About Future Housing: No Difficulty Paying Gas/Electric Bills: YES Difficulty Paying for Meds: No Currently Unemployed: No Education: High School Diploma/GED Difficulty w/ Childcare or Family Care: No Spiritual care concerns: No Meds Home Medications and Allergies Home Medications
--- NOTE | 2023-01-01 20:55 | PC.NURSE ---
Patient arrived on 3 Med-Surg at 20:56
[2023-01-01] MEDS: carvediloL 12.5 MG TABLET PO (23:06)
[2023-01-01] MEDS: hydroCHLOROthiazide 25 MG TABLET PO (23:06)
[2023-01-01] MEDS: methylPREDNISolone SOD SUCC 125 MG VIAL 60 MG IV PUSH (23:08)
[2023-01-02] VITALS (21 sets, daily range): BP systolic 148–167; BP diastolic 67–98; PULSE 60–87; RESP 13–20; TEMP 35.9–36.5; O2SAT 90–97
[2023-01-02] MEDS: CALCIUM CARBONATE (TUMS) 500 MG (200 MG ELEMENTAL) PO (00:04)
[2023-01-02] MEDS: IPRATROPIUM BR 0.02% INH SOLN 0.5 MG/2.5 ML VIAL INHALATION ×7 (00:20→23:07)
[2023-01-02] MEDS: ALBUTEROL SULFATE NEB 2.5 MG/3 ML INH INHALATION ×7 (00:20→23:08)
[2023-01-02] MEDS: methylPREDNISolone SOD SUCC 125 MG VIAL 60 MG IV PUSH ×4 (05:17→23:47)
[2023-01-02] MEDS: UMECLIDINIUM/VILANTEROL 62.5-25 MCG ELLIPTA 1 PUFF INHALATION (07:15)
[2023-01-02] MEDS: carvediloL 12.5 MG TABLET PO ×2 (08:11→22:16)
[2023-01-02] MEDS: TAMSULOSIN HCL 0.4 MG CAPSULE PO (08:11)
[2023-01-02] MEDS: PANTOPRAZOLE 40 MG TABLET PO ×2 (08:11→22:17)
[2023-01-02] MEDS: SIMVASTATIN 20 MG TABLET PO (08:11)
[2023-01-02] MEDS: LOSARTAN POTASSIUM 50 MG TABLET 100 MG PO (08:11)
--- NOTE | 2023-01-02 10:37 | PM.IMPN ---
Progress Note: A&P Assessment and Plan (1) COPD exacerbation: Code(s): J44.1 - Chronic obstructive pulmonary disease with (acute) exacerbation Status: Acute Assessment and Plan: Admit to regular medical floor Scheduled breathing treatment Started on levofloxacin Systemic steroids Continue to monitor (2) MAHENDRA (obstructive sleep apnea): Code(s): G47.33 - Obstructive sleep apnea (adult) (pediatric) Status: Acute Assessment and Plan: CPAP at nighttime (3) HTN (hypertension): Code(s): I10 - Essential (primary) hypertension Status: Acute Assessment and Plan: Resume home meds (4) Wound dehiscence, external operation: Code(s): T81.31XA - Disruption of external operation (surgical) wound, not elsewhere classified, initial encounter Status: Acute Assessment and Plan: Local care Wound care consult Subjective Date/time seen: 01/02/23 10:37 No new complaints Exam Narrative: Patient is sitting in bed Const: General: comfortable, no acute distress, well developed, alert, awake and average body habitus Nutritional Appearance: average body habitus Orientation/consciousness: patient oriented x3 HENMT: Head: normal to inspection, normocephalic and atraumatic Ears: hearing grossly normal bilaterally Face/Nose/Sinus: normal facial exam Face and sinus: normal facial exam Eyes: General: appearance normal, both eyes and all related structures Pupils: Equal, round and reactive pupils present EOM: EOMs intact bilaterally Neck: Neck: full ROM, no lymphadenopathy and no JVD Thyroid: thyroid normal Lymphatic: no lymphadenopathy noted Resp: Effort & Inspection: normal respiratory effort and able to speak in complete sentences Auscultation: wheezes Cardio: Jugular venous distension: no JVD Rate: regular rate Rhythm: regular rhythm Heart sounds: S1 normal heart sound present and S2 normal heart sound present : General: Yes deferred Skin: General skin exam: wounds noted Rashes: no rashes Wounds: wounds noted incision left distal leg bed yellow, margins indurated, without odor, open and sutures loose Neuro: General: patient oriented x3 and CN's II-XI intact bilaterally Cranial nerves: Yes CN's II-XII intact bilaterally and Yes Equal, round and reactive pupils present Cognition (Neuro): normal cognition Speech: normal speech Gait exam (Neuro): Normal gait present Motor exam (neuro): 5/5 motor strength present throughout Sensory Exam: No Sensory deficit (Neuro) Extrem: General: edema bilateral and other (Chronic skin changes and discoloration) Objective Data Vital Signs Vital Signs: Vital Signs - 24 hr 01/01/23 15:10 01/01/23 15:44 01/01/23 15:47 Temperature 101.1 F H Pulse Rate 100 102 H Respiratory Rate 16 14 Blood Pressure 109/46 L 150/81 H Pulse Oximetry 100 96 Oxygen Delivery Room Air Room Air Fraction of Inspired Oxygen 01/01/23 17:21 01/01/23 15:49 01/01/23 16:00 Temperature Pulse Rate 96 104 H 92 Respiratory Rate 19 18 18 Blood Pressure 150/81 H Pulse Oximetry 97 94 Oxygen Delivery Fraction of Inspired Oxygen 01/01/23 16:18 01/01/23 16:30 01/01/23 16:32 Temperature Pulse Rate 94 91 92 Respiratory Rate 18 22 H 20 Blood Pressure 167/87 H Pulse Oximetry 95 94 93 Oxygen Delivery Fraction of Inspired Oxygen 01/01/23 16:55 01/01/23 17:00 01/01/23 17:15 Temperature Pulse Rate 89 95 92 Respiratory Rate 19 18 24 H Blood Pressure Pulse Oximetry 100 97 Oxygen Delivery Fraction of Inspired Oxygen 01/01/23 17:30 01/01/23 17:45 01/01/23 18:02 Temperature Pulse Rate 92 90 90 Respiratory Rate 14 22 H 25 H Blood Pressure Pulse Oximetry 100 100 100 Oxygen Delivery Fraction of Inspired Oxygen 01/01/23 18:15 01/01/23 18:31 01/01/23 18:42 Temperature Pulse Rate 84 90 91 Respiratory Rate 17 17 14 Blood Pressure Pulse Oximetry 100 100 Oxygen Deliver
[2023-01-02] MEDS: hydroCHLOROthiazide 25 MG TABLET PO (22:15)
--- NOTE | 2023-01-03 03:02 | PC.NURSE ---
Daylight Savings Time For Daylight Savings Time Ending in the Fall - Clocks are moved back. For Daylight Savings Time Beginning in the Spring - Clocks are moved ahead. For [facility], the time of change occurs at 0200 hrs. Time is taken from the secret code expert. This entry on the patient's chart recognizes the change in time reflected during documentation. Example: 2 entries for vital signs may be charted for 0200 hrs.
[2023-01-03 06:00] VITALS: BP 164/65; PULSE 79; RESP 20; TEMP 36.6; O2SAT 100
[2023-01-03] MEDS: methylPREDNISolone SOD SUCC 125 MG VIAL 60 MG IV PUSH ×2 (06:19→13:09)
--- NOTE | 2023-01-03 06:29 | PC.NURSE ---
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 Instructed on need for sputum sample
[2023-01-03 06:53] LABS: Basophils Percent Auto 0.3 % (0.2-1.2); Eosinophils Percent Auto 0.3 % (0-4.4); Hematocrit 42.1 % (42.0-52.0); Hemoglobin 14.8 g/dL (14.0-18.0); Immature Granulocyte Absolute 0.13 K/mm3 (0.00-0.031); Immature Granulocyte Percent A 0.9 % (0-0.5); Lymphocytes Percent Auto 7.9 % (18.3-44.2); Mean Corpuscular HGB Conc 35.2 g/dl (32-36); Mean Corpuscular Hemoglobin 30.7 pg (26-34); Mean Corpuscular Volume 87.3 fl (80-100); Mean Platelet Volume 9.6 fl (7.4-10.4); Monocytes Absolute Auto 0.6 K/mm3 (0.1-0.6); Neutrophils Absolute Auto 13.2 K/mm3 (1.3-6.7); Neutrophils Percent Auto 86.6 % (45.5-73.1); Platelet Count Result 217 k/mm3 (150-375); Red Blood Count 4.82 M/mm3 (4.6-6.20); Red Cell Distribution Width 12.3 % (11.5-14.5); White Blood Count 15.2 K/mm3 (4.5-10.0)
[2023-01-03 07:06] LABS: Anion Gap 7 mmol/L (8-16); Blood Urea Nitrogen 23 mg/dL (9-20); Calcium 8.7 mg/dL (8.4-10.2); Carbon Dioxide 29 mmol/L (22-30); Chloride 101 mmol/L (98-107); Estimated CRCL calculation 105 ml/min; Estimated Glomerular Filt Rate > 60; Glucose 211 mg/dL (65-110); Potassium 3.4 mmol/L (3.4-5.0); Sodium 137 mmol/L (137-145)
[2023-01-03] MEDS: SIMVASTATIN 20 MG TABLET PO (08:13)
[2023-01-03] MEDS: LOSARTAN POTASSIUM 50 MG TABLET 100 MG PO (08:13)
[2023-01-03] MEDS: carvediloL 12.5 MG TABLET PO (08:13)
[2023-01-03] MEDS: PANTOPRAZOLE 40 MG TABLET PO (08:13)
[2023-01-03] MEDS: TAMSULOSIN HCL 0.4 MG CAPSULE PO (08:13)
[2023-01-03 09:30] VITALS: PULSE 76; RESP 18; O2SAT 97
[2023-01-03] MEDS: UMECLIDINIUM/VILANTEROL 62.5-25 MCG ELLIPTA 1 PUFF INHALATION (09:33)
[2023-01-03] MEDS: ALBUTEROL SULFATE NEB 2.5 MG/3 ML INH INHALATION ×2 (09:33→13:07)
[2023-01-03] MEDS: IPRATROPIUM BR 0.02% INH SOLN 0.5 MG/2.5 ML VIAL INHALATION ×2 (09:33→13:07)
[2023-01-03 09:44] VITALS: PULSE 78; RESP 18
--- NOTE | 2023-01-03 11:40 | PM.DS ---
DS: Admitting Diagnosis Discharge Date January 03, 2023 Admitting Diagnosis Asthma/COPD exacerbation DS: Discharge Diagnosis Discharge Diagnosis (1) COPD exacerbation: Code(s): J44.1 - Chronic obstructive pulmonary disease with (acute) exacerbation Status: Acute Assessment and Plan: Admit to regular medical floor Scheduled breathing treatment Started on levofloxacin Systemic steroids Continue to monitor (2) MAHENDRA (obstructive sleep apnea): Code(s): G47.33 - Obstructive sleep apnea (adult) (pediatric) Status: Acute Assessment and Plan: CPAP at nighttime (3) HTN (hypertension): Code(s): I10 - Essential (primary) hypertension Status: Acute Assessment and Plan: Resume home meds (4) Wound dehiscence, external operation: Code(s): T81.31XA - Disruption of external operation (surgical) wound, not elsewhere classified, initial encounter Status: Acute Assessment and Plan: Local care Wound care consult DS: Summary Hospital Course Hospital Course: Admitted for COPD exacerbation. Started on IV antibiotics and steroids. Did well. Not requiring oxygen. He can be discharged to complete course of antibiotics and steroids. Follow-up primary care doctor Time Spent with Patient Time attestation: Total time spent providing and/or coordinating discharge services: Exam Narrative: Patient is sitting in bed Const: General: comfortable, no acute distress, well developed, alert, awake and average body habitus Nutritional Appearance: average body habitus Orientation/consciousness: patient oriented x3 HENMT: Head: normal to inspection, normocephalic and atraumatic Ears: hearing grossly normal bilaterally Face/Nose/Sinus: normal facial exam Face and sinus: normal facial exam Eyes: General: appearance normal, both eyes and all related structures Pupils: Equal, round and reactive pupils present EOM: EOMs intact bilaterally Neck: Neck: full ROM, no lymphadenopathy and no JVD Thyroid: thyroid normal Lymphatic: no lymphadenopathy noted Resp: Effort & Inspection: normal respiratory effort and able to speak in complete sentences Auscultation: wheezes Cardio: Jugular venous distension: no JVD Rate: regular rate Rhythm: regular rhythm Heart sounds: S1 normal heart sound present and S2 normal heart sound present : General: Yes deferred Skin: General skin exam: wounds noted Rashes: no rashes Wounds: wounds noted incision left distal leg bed yellow, margins indurated, without odor, open and sutures loose Neuro: General: patient oriented x3 and CN's II-XI intact bilaterally Cranial nerves: Yes CN's II-XII intact bilaterally and Yes Equal, round and reactive pupils present Cognition (Neuro): normal cognition Speech: normal speech Gait exam (Neuro): Normal gait present Motor exam (neuro): 5/5 motor strength present throughout Sensory Exam: No Sensory deficit (Neuro) Extrem: General: edema bilateral and other (Chronic skin changes and discoloration) DS: Data Data Completed and Pending Labs on day of discharge: Labs from last 24 hours 01/03/23 01/03/23 06:27 06:27 WBC 15.2 H RBC 4.82 Hgb 14.8 Hct 42.1 MCV 87.3 MCH 30.7 MCHC 35.2 RDW 12.3 Plt Count 217 MPV 9.6 Immature Gran % (Auto) 0.9 H Neut % (Auto) 86.6 H Lymph % (Auto) 7.9 L [place] % (Auto) 4.0 Eos % (Auto) 0.3 Baso % (Auto) 0.3 Lymph # (Auto) 1.20 [place] # (Auto) 0.6 Eos # (Auto) 0.0 Baso # (Auto) 0.0 Abs Immat Gran (auto) 0.13 H Absolute Neuts (auto) 13.2 H Absolute Nucleated RBC 0.0 Nucleated RBC % 0.0 Sodium 137 Potassium 3.4 Chloride 101 Carbon Dioxide 29 Anion Gap 7 L BUN 23 H Creatinine 0.80 Estim Creat Clear Calc 105 Estimated GFR > 60 Glucose 211 H Calcium 8.7 Discharge Plan Discharge Attending physician on discharge: Adelfo Redd Discharging Clinician: Adelfo Redd
[2023-01-03 13:00] VITALS: PULSE 75; RESP 18
[2023-01-03 13:17] VITALS: PULSE 78; RESP 18
== END 2023-01-03 13:46 | disposition home or self-care (01) ==
LOC: ANHED 15:50 → ANH3MEDSUR 21:15
PROVIDERS: Admitting Provider Internal Medicine; Emergency Provider Emergency Medicine; PCP Physician Assistant; Visit Provider Chiropractor
DX: J44.1 Chronic obstructive pulmonary disease with (acute) exacerbation (principal); G47.33 Obstructive sleep apnea (adult) (pediatric); I10 Essential (primary) hypertension; T81.31XA Disruption of external operation (surgical) wound, not elsewhere classified, initial encounter; E78.5 Hyperlipidemia, unspecified; F10.90 Alcohol use, unspecified, uncomplicated; Z82.49 Family history of ischemic heart disease and other diseases of the circulatory system; Z87.891 Personal history of nicotine dependence; Z79.899 Other long term (current) drug therapy
CPT/HCPCS: 36415; 71046; 80048; 80053; 85025; 87637; 94640; 96361; 96365; 96374; 96375; 96376; 99285; A9270; G0378; J1885; J1956; J2930; J7030

== ENCOUNTER 2023-02-08 13:54 | Emergency (ER) | payer OTHER, SELFPAY ==
--- NOTE | ~2023-02-08 | XR_ITS ---
XR shoulder RT min 2V 02/08/2023 15:26 Indication: Right shoulder pain. Procedure: 4 views right shoulder Comparison: No prior studies for comparison. Findings: There is osteoarthritis of the acromioclavicular and glenohumeral joints. No fracture, subl uxation or dislocation. Lung parenchyma is unremarkable. No significant soft tissue abnormality. No f oreign bodies. Impression: 1: Mild polyarticular osteoarthritis of the right shoulder. Reviewed, dictated and finalized at location A. Impression: 1: Mild polyarticular osteoarthritis of the right shoulder.
[2023-02-08 13:55] VITALS: BP 163/92; PULSE 67; RESP 16; TEMP 36.6; O2SAT 99
--- NOTE | 2023-02-08 15:18 | ED.GENADULT ---
HPI - General Adult General Chief complaint: Extremity Injury, Upper Stated complaint: R. shoulder injury Time Seen by Provider: 02/08/23 15:02 Source: patient Limitations: no limitations History of Present Illness HPI narrative: This is a 52-year-old male presents to the ED with chief complaint of right shoulder pain after an injury that occurred at work 2 days ago. Patient reports he was lifting assaults better at work with another person when it suddenly fell down off the truck and pulled on his arm. He immediately felt a pop and had pain in the anterior shoulder. Endorses reduced range of motion of the right shoulder. He has not been taking any [id number] pain meds for pain prior to arrival. Denies numbness or weakness. Denies any further site of pain or injury. Related Data Home Medications Medication Instructions Recorded Confirmed losartan 50 mg tablet 100 mg PO DAILY 08/27/20 01/01/23 simvastatin 20 mg tablet 20 mg PO DAILY 08/27/20 01/01/23 tamsulosin 0.4 mg capsule 0.4 mg PO DAILY 08/27/20 01/01/23 carvedilol 12.5 mg tablet 12.5 mg PO BID 09/27/22 01/01/23 hydrochlorothiazide 25 mg tablet 25 mg PO QHS 09/27/22 01/01/23 Allergies Allergy/AdvReac Type Severity Reaction Status Date / Time No Known Allergies Allergy Verified 02/08/23 14:27 Review of Systems Review of Systems: CONSTITUTIONAL: Denies fever, chills, or sweats. SKIN: Denies rash or itching. Denies bruising or erythema. Denies wounds. MUSCULOSKELETAL: See HPI NEUROLOGIC: Denies headache, numbness, dizziness, or weakness. PSYCHIATRIC: Denies anxiety or depression. [facility] Past Medical History Medical History History of hyperlipidemia History of hypertension Family History Family History Mother Diabetes mellitus Hypertension Father Diabetes mellitus Acute myocardial infarction Hypertension Grandparent Malignant neoplasm of prostate Acute myocardial infarction Cancer Other Acute myocardial infarction Social History Social History Smoking packs per day: 1 Smoking cigarettes per day: 20.0 Smoking status: Former smoker Tobacco type: cigarettes Smoking end date: 09/24/22 Alcohol intake: current Drinks per week: 16 Substance use: current Substance use type: marijuana Lack of Transportation: No Lack of Food: Never True Current Housing: I Have Housing Concerned About Future Housing: No Difficulty Paying Gas/Electric Bills: YES Difficulty Paying for Meds: No Currently Unemployed: No Education: High School Diploma/GED Difficulty w/ Childcare or Family Care: No Spiritual care concerns: No Exam Narrative: GENERAL: Well-appearing, well-nourished, and in no acute distress. HEAD: Normocephalic, atraumatic. EXTREMITIES: RUE: No bruising or deformity. Moderate tenderness throughout the anterior right shoulder. Marked difficulty with active range of motion of the shoulder. Unable to forward flex past 90 degrees. Decreased range of motion of external rotation as well. Resisted biceps flexion recreates pain in the anterior shoulder. Neurovascularly intact distally. LUE: Benign. MSK exam is otherwise unremarkable. Normal range of motion. No edema. SKIN: Warm, dry, no rash. NEURO: Alert and oriented x3. No focal deficits. PSYCH: Normal mood and affect. Course Vital Signs Vital signs: Vital Signs Temperature 98 F 02/08/23 13:55 Pulse Rate 67 02/08/23 13:55 Respiratory Rate 16 02/08/23 13:55 Blood Pressure 163/92 H 02/08/23 13:55 Pulse Oximetry 99 02/08/23 13:55 Oxygen Delivery Room Air 02/08/23 13:55 Temperature 98 F 02/08/23 13:55 Pulse Rate 67 02/08/23 13:55 Respiratory Rate 16 02/08/23 13:55 Blood Pressure 163/92 H 02/08/23 13:55 Pulse Oximetry 99 02/08/23 13:55 Oxygen
[2023-02-08] MEDS: HYDROcodone/acetaminophen (*CRX) 7.5-325 MG TABLET 1 TAB PO (15:48)
== END 2023-02-08 16:59 | disposition home or self-care (01) ==
PROVIDERS: Emergency Provider Physician Assistant; PCP Physician Assistant
DX: S49.91XA Unspecified injury of right shoulder and upper arm, initial encounter (principal); E78.5 Hyperlipidemia, unspecified; I10 Essential (primary) hypertension; Z87.891 Personal history of nicotine dependence; X50.0XXA Overexertion from strenuous movement or load, initial encounter
CPT/HCPCS: 73030; 99283; A9270

== ENCOUNTER 2023-06-20 22:20 | Emergency (ER) | payer OTHER, SELFPAY ==
--- NOTE | ~2023-06-20 | XR_ITS ---
AP and lateral views of the left tibia/fibula Clinical History: Trauma Findings: No acute fracture or dislocation is seen. Osseous alignment is anatomic. Joint spaces are p reserved without significant erosive or degenerative change. Possible mild diffuse subcutaneous soft tissue edema. Impression: No osseous or articular abnormality. Possible mild diffuse subcutaneous soft tissue edema. Reviewed, dictated and finalized at [facility]. Impression: No osseous or articular abnormality. Possible mild diffuse subcutaneous soft tissue edema.
[2023-06-20 22:21] VITALS: BP 132/70; PULSE 99; RESP 17; TEMP 36.7; O2SAT 99
[2023-06-20] MEDS: HYDROcodone/acetaminophen (*CRX) 7.5-325 MG TABLET 1 TAB PO (23:27)
[2023-06-20 23:39] LABS: Basophils Percent Auto 0.5 % (0.2-1.2); Eosinophils Absolute Auto 0.2 K/mm3 (0-0.3); Eosinophils Percent Auto 2.7 % (0-4.4); Hematocrit 40.7 % (42.0-52.0); Hemoglobin 14.3 g/dL (14.0-18.0); Immature Granulocyte Absolute 0.02 K/mm3 (0.00-0.031); Immature Granulocyte Percent A 0.3 % (0-0.5); Lymphocytes Absolute Auto 1.41 K/mm3 (0.9-3.2); Lymphocytes Percent Auto 18.8 % (18.3-44.2); Mean Corpuscular HGB Conc 35.1 g/dl (32-36); Mean Corpuscular Hemoglobin 31.8 pg (26-34); Mean Corpuscular Volume 90.4 fl (80-100); Mean Platelet Volume 9.5 fl (7.4-10.4); Monocytes Absolute Auto 0.7 K/mm3 (0.1-0.6); Monocytes Percent Auto 9.6 % (2.6-8.5); Neutrophils Absolute Auto 5.1 K/mm3 (1.3-6.7); Neutrophils Percent Auto 68.1 % (45.5-73.1); Platelet Count Result 192 k/mm3 (150-375); Red Cell Distribution Width 12.9 % (11.5-14.5); White Blood Count 7.5 K/mm3 (4.5-10.0)
[2023-06-20 23:58] LABS: Alanine Aminotransferase 37 U/L (6-50); Albumin Level 3.9 g/dL (3.5-5.1); Alkaline Phosphatase 96 U/L (38-126); Anion Gap 4 mmol/L (8-16); Aspartate Amino Transferase 35 U/L (17-59); Bilirubin,Total 0.5 mg/dL (0.2-1.3); Blood Urea Nitrogen 24 mg/dL (9-20); CRP 0.9 mg/dL (<1.0); Calcium 8.5 mg/dL (8.4-10.2); Carbon Dioxide 28 mmol/L (22-30); Chloride 102 mmol/L (98-107); Estimated CRCL calculation 68 ml/min; Estimated Glomerular Filt Rate 58; Glucose 113 mg/dL (65-110); Potassium 3.5 mmol/L (3.4-5.0); Sodium 134 mmol/L (137-145)
--- NOTE | 2023-06-20 23:59 | ED.GENADULT ---
HPI - General Adult General Chief complaint: Wound/Laceration Stated complaint: hit my leg on something, blisters Time Seen by Provider: 06/20/23 22:56 Source: patient Mode of arrival: ambulatory Limitations: no limitations History of Present Illness HPI narrative: This is a 52-year-old male who presents to the ED with chief complaint of left lower extremity pain onset x3 days following an injury. Patient states that he was in his backyard fishing at night when he accidentally turned in his left mcdonald on a fishing pole abdul. He had a couple of abrasions to the area at the time but since notices that the pain is increasing in the area. She states that he had a couple of blisters pop up as well. Reports the area is warm to touch and very tender. Denies any immunocompromising conditions or medications. Denies fevers, chills, nausea, vomiting. Denies leg swelling. Related Data Home Medications Medication Instructions Recorded Confirmed losartan 50 mg tablet 100 mg PO DAILY 08/27/20 02/12/23 simvastatin 20 mg tablet 20 mg PO DAILY 08/27/20 02/12/23 tamsulosin 0.4 mg capsule 0.4 mg PO DAILY 08/27/20 02/12/23 carvedilol 12.5 mg tablet 12.5 mg PO BID 09/27/22 02/12/23 hydrochlorothiazide 25 mg tablet 25 mg PO QHS 09/27/22 02/12/23 Allergies Allergy/AdvReac Type Severity Reaction Status Date / Time No Known Allergies Allergy Verified 02/12/23 13:38 Review of Systems Review of Systems: All systems as dictated in HPI [facility] Past Medical History Medical History (Updated 06/21/23 @ 00:07 by Scot Obrien PA-C) Bruises easily History of hyperlipidemia History of hypertension History of stress test Sleep apnea Surgical History Surgical History (Updated 02/12/23 @ 14:29 by Catalina Hernández MA) History of ankle surgery Rt ankle screws placed History of arthroscopic surgery of shoulder Lt shoulder biceps tendon repaired History of hand surgery middle finger rt hand History of sinus surgery x4 History of surgery on lower extremity 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 Family History Family History Mother Diabetes mellitus Hypertension Father Diabetes mellitus Acute myocardial infarction Hypertension Grandparent Malignant neoplasm of prostate Acute myocardial infarction Cancer Other Acute myocardial infarction Social History Social History (Updated 02/12/23 @ 14:31 by Catalina Hernández MA) Smoking packs per day: 1 Smoking cigarettes per day: 20.0 Smoking status: Former smoker Tobacco type: cigarettes Smoking end date: 09/24/22 Alcohol intake: current Drinks per week: 16 Substance use: current Substance use type: marijuana Lack of Transportation: No Lack of Food: Never True Current Housing: I Have Housing Concerned About Future Housing: No Difficulty Paying Gas/Electric Bills: YES Difficulty Paying for Meds: No Currently Unemployed: No Education: Trade/Vocational Certificate Difficulty w/ Childcare or Family Care: No Spiritual care concerns: No Exam Narrative: GENERAL: Well-appearing, well-nourished, and in no acute distress. HEAD: Normocephalic, atraumatic. EYES: PERRLA and EOMI. ENT: Nares clear, no rhinorrhea or epistaxis. Mucous membranes moist. Oropharynx without tonsillar hypertrophy exudate or other lesions. NECK: Supple. No adenopathy or masses. CHEST: No respiratory distress. Clear to auscultation. No wheezes rales or rhonchi HEART: Regular rate and rhythm. No murmur heard. Normal peripheral pulses. ABDOMEN: Soft, nontender, nondistended, normal active bowel sounds. MSK: Normal range of motion. No edema. SKIN: Warm, dry, no rash. NEURO: Alert and oriented x3. No focal deficits. PSYCH: Normal mood and affect. Course Vital Signs Vital signs: Vital Signs Temperature 98.1 F 06/20/23 22:21 Pulse Rate 99 06/20/23 22:21 Respiratory Rate 17 06/20/23 22:21 Bl
[2023-06-21] MEDS: AMOXICILLIN/CLAVULANATE K 875-125 MG TAB 1 TABLET PO (00:17)
--- NOTE | 2023-06-21 00:26 | PC.NURSE ---
Telfa and coban applied to wound prior to discharge.
[2023-06-21 00:27] VITALS: PULSE 82; RESP 14; O2SAT 100
== END 2023-06-21 00:28 | disposition home or self-care (01) ==
PROVIDERS: Emergency Provider Physician Assistant; PCP Physician Assistant
DX: L03.116 Cellulitis of left lower limb (principal); E78.5 Hyperlipidemia, unspecified; I10 Essential (primary) hypertension; Z87.891 Personal history of nicotine dependence
CPT/HCPCS: 36415; 73590; 80053; 85025; 86140; 99283; A9270

== ENCOUNTER 2023-12-08 05:56 | Emergency (ER) | payer SELFPAY ==
[2023-12-08 06:00] VITALS: BP 164/107; PULSE 60; RESP 15; TEMP 36.1; O2SAT 100
--- NOTE | 2023-12-08 06:50 | ED.GENADULT ---
HPI - General Adult General Chief complaint: Epistaxis Stated complaint: epistaxis Time Seen by Provider: 12/08/23 06:50 History of Present Illness HPI narrative: this is a 53-year-old male with history of recurrent nose bleeds presenting with a nose bleed. Bleeding out his right nare since 02/21. He was able to pack it with tissue to controlled bleeding. No use of blood thinners. Related Data Home Medications Medication Instructions Recorded Confirmed losartan 50 mg tablet 100 mg PO DAILY 08/27/20 02/12/23 simvastatin 20 mg tablet 20 mg PO DAILY 08/27/20 02/12/23 tamsulosin 0.4 mg capsule 0.4 mg PO DAILY 08/27/20 02/12/23 carvedilol 12.5 mg tablet 12.5 mg PO BID 09/27/22 02/12/23 hydrochlorothiazide 25 mg tablet 25 mg PO QHS 09/27/22 02/12/23 Allergies Allergy/AdvReac Type Severity Reaction Status Date / Time No Known Allergies Allergy Verified 02/12/23 13:38 [facility] Past Medical History Medical History (Updated 12/11/23 @ 00:00 by Obed Duarte) Bruises easily History of hyperlipidemia History of hypertension History of stress test Sleep apnea Surgical History Surgical History (Updated 02/12/23 @ 14:29 by Catalina Hernández MA) History of ankle surgery Rt ankle screws placed History of arthroscopic surgery of shoulder Lt shoulder biceps tendon repaired History of hand surgery middle finger rt hand History of sinus surgery x4 History of surgery on lower extremity 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 Family History Family History Mother Diabetes mellitus Hypertension Father Diabetes mellitus Acute myocardial infarction Hypertension Grandparent Malignant neoplasm of prostate Acute myocardial infarction Cancer Other Acute myocardial infarction Social History Social History (Updated 02/12/23 @ 14:31 by Catalina Hernández MA) Smoking packs per day: 1 Smoking cigarettes per day: 20.0 Smoking status: Former smoker Tobacco type: cigarettes Smoking end date: 09/24/22 Alcohol intake: current Drinks per week: 16 Substance use: current Substance use type: marijuana Lack of Transportation: No Lack of Food: Never True Current Housing: I Have Housing Concerned About Future Housing: No Difficulty Paying Gas/Electric Bills: YES Difficulty Paying for Meds: No Currently Unemployed: No Education: Trade/Vocational Certificate Difficulty w/ Childcare or Family Care: No Spiritual care concerns: No Exam Narrative: APPEARANCE: No apparent distress. Head: atraumatic. EYES: EOMI, NOSE: Bleeding from the right Nare, no identifiable bleeding point NECK: Trachea midline RESPIRATORY: No increased rate of breathing CARDIOVASCULAR: RRR, ABDOMINAL: Non-distended MUSCULOSKELETAl: No obvious deformities NEURO: Alert. Moving 4/4 extremities SKIN:: Warm, dry. Normal color PSYCHIATRIC: Normal affect Course Vital Signs Vital signs: Vital Signs Temperature 97 F L 12/08/23 06:00 Pulse Rate 60 12/08/23 06:00 Respiratory Rate 15 12/08/23 06:00 Blood Pressure 164/107 H 12/08/23 06:00 Pulse Oximetry 100 12/08/23 06:00 Oxygen Delivery Room Air 12/08/23 06:00 Temperature 97 F L 12/08/23 06:00 Pulse Rate 60 12/08/23 06:00 Respiratory Rate 15 12/08/23 06:00 Blood Pressure 164/107 H 12/08/23 06:00 Pulse Oximetry 100 12/08/23 06:00 Oxygen Delivery Room Air 12/08/23 06:00 Procedures Epistaxis Control right: Epistaxis Control Date: 12/08/23 Time Out Performed: Yes Nose Prepped With: oxymetazoline Direct Inspection: yes and unable to visualize Clots Removed by: blowing nose Cautery Used: none Device Inserted: hemostatic balloon Device Size: 7 Patient Tolerated Procedure: well Medical Decision Making MDM Narrative Medical decision making narrative: -Course: 53-year-old male with recurrent nose bleeds
[2023-12-08] MEDS: OXYMETAZOLINE HCL 0.05% NAS 15 ML BTL (*BKC) 1 SPRAY NASAL (07:02)
--- NOTE | 2023-12-08 07:10 | PC.NURSE ---
Bedside report to ARNOL Juarez.
== END 2023-12-08 08:06 | disposition home or self-care (01) ==
PROVIDERS: Emergency Provider Emergency Medicine; PCP Physician Assistant
DX: R04.0 Epistaxis (principal); E78.5 Hyperlipidemia, unspecified; I10 Essential (primary) hypertension; G47.30 Sleep apnea, unspecified; Z87.891 Personal history of nicotine dependence
CPT/HCPCS: 30901; 99283; A9270

== ENCOUNTER 2023-12-10 09:31 | Emergency (ER) | payer SELFPAY ==
[2023-12-10 09:48] VITALS: BP 137/94; PULSE 80; RESP 18; TEMP 36.4; O2SAT 97
--- NOTE | 2023-12-10 10:45 | ED.GENADULT ---
HPI - General Adult General Chief complaint: Unspecified Stated complaint: remove rhino rocket Time Seen by Provider: 12/10/23 10:06 History of Present Illness HPI narrative: Patient is a 53-year-old male who presents ER for removal of nasal packing. He had it placed 2 days ago for epistaxis. He cannot get in to the ENT due to insurance issues. No difficulty breathing or swelling. Bleeding has resolved. No blood thinners. Related Data Home Medications Medication Instructions Recorded Confirmed losartan 50 mg tablet 100 mg PO DAILY 08/27/20 02/12/23 simvastatin 20 mg tablet 20 mg PO DAILY 08/27/20 02/12/23 tamsulosin 0.4 mg capsule 0.4 mg PO DAILY 08/27/20 02/12/23 carvedilol 12.5 mg tablet 12.5 mg PO BID 09/27/22 02/12/23 hydrochlorothiazide 25 mg tablet 25 mg PO QHS 09/27/22 02/12/23 Allergies Allergy/AdvReac Type Severity Reaction Status Date / Time No Known Allergies Allergy Verified 02/12/23 13:38 Review of Systems Constitutional: Constitutional: Reports no additional constitutional complaints ENT: Reports system reviewed and no additional complaints, except as documented PMF Past Medical History Medical History (Updated 12/10/23 @ 10:46 by Blaze Leggett MD) Bruises easily History of hyperlipidemia History of hypertension History of stress test Sleep apnea Surgical History Surgical History (Updated 02/12/23 @ 14:29 by Catalina Hernández MA) History of ankle surgery Rt ankle screws placed History of arthroscopic surgery of shoulder Lt shoulder biceps tendon repaired History of hand surgery middle finger rt hand History of sinus surgery x4 History of surgery on lower extremity 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 Family History Family History Mother Diabetes mellitus Hypertension Father Diabetes mellitus Acute myocardial infarction Hypertension Grandparent Malignant neoplasm of prostate Acute myocardial infarction Cancer Other Acute myocardial infarction Social History Social History (Updated 02/12/23 @ 14:31 by Catalina Hernández MA) Smoking packs per day: 1 Smoking cigarettes per day: 20.0 Smoking status: Former smoker Tobacco type: cigarettes Smoking end date: 09/24/22 Alcohol intake: current Drinks per week: 16 Substance use: current Substance use type: marijuana Lack of Transportation: No Lack of Food: Never True Current Housing: I Have Housing Concerned About Future Housing: No Difficulty Paying Gas/Electric Bills: YES Difficulty Paying for Meds: No Currently Unemployed: No Education: Trade/Vocational Certificate Difficulty w/ Childcare or Family Care: No Spiritual care concerns: No Exam Narrative: GENERAL: Well-appearing, well-nourished, and in no acute distress. HEAD: Normocephalic, atraumatic. ENT: Rhino rocket right nostril. Mucous membranes moist. NEURO: N Alert and oriented x3. PSYCH: Normal mood and affect. Course Course Emergency Course: Balloon deflated. Packing removed. No additional bleeding. Discharge. Vital Signs Vital signs: Vital Signs Temperature 97.6 F 12/10/23 09:48 Pulse Rate 80 12/10/23 09:48 Respiratory Rate 18 12/10/23 09:48 Blood Pressure 137/94 H 12/10/23 09:48 Pulse Oximetry 97 12/10/23 09:48 Oxygen Delivery Room Air 12/10/23 09:48 Temperature 97.6 F 12/10/23 09:48 Pulse Rate 80 12/10/23 09:48 Respiratory Rate 18 12/10/23 09:48 Blood Pressure 137/94 H 12/10/23 09:48 Pulse Oximetry 97 12/10/23 09:48 Oxygen Delivery Room Air 12/10/23 09:48 Medical Decision Making Vital Signs Vital Signs: Vital Signs Temperature 97.6 F 12/10/23 09:48 Pulse Rate 80 12/10/23 09:48 Respiratory Rate 18 12/10/23 09:48 Blood Pressure 137/94 H 12/10/23 09:48 Pulse Oximetry 97 12/10/23 09:48 Oxygen Delivery Room Air 12/10/23 09:48 Temperature 97.6 F
== END 2023-12-10 11:14 | disposition home or self-care (01) ==
PROVIDERS: Emergency Provider Emergency Medicine; PCP Physician Assistant
DX: Z48.00 Encounter for change or removal of nonsurgical wound dressing (principal); E78.5 Hyperlipidemia, unspecified; I10 Essential (primary) hypertension; G47.30 Sleep apnea, unspecified; Z87.891 Personal history of nicotine dependence
CPT/HCPCS: 99281

== ENCOUNTER 2024-01-19 19:28 | Emergency (ER) | payer OTHER, SELFPAY ==
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
[2024-01-19 19:30] VITALS: BP 185/91; PULSE 86; RESP 20; TEMP 37.3; O2SAT 99
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
[2024-01-19 20:35] VITALS: BP 172/88; PULSE 80; RESP 17; O2SAT 98
== END 2024-01-19 20:36 | disposition home or self-care (01) ==
PROVIDERS: Emergency Provider Physician Assistant; PCP Physician Assistant
DX: S63.502A Unspecified sprain of left wrist, initial encounter (principal); S66.912A Strain of unspecified muscle, fascia and tendon at wrist and hand level, left hand, initial encounter; I10 Essential (primary) hypertension; E78.5 Hyperlipidemia, unspecified; G47.30 Sleep apnea, unspecified; Z87.891 Personal history of nicotine dependence; V43.52XA Car driver injured in collision with other type car in traffic accident, initial encounter; W22.11XA Striking against or struck by driver side automobile airbag, initial encounter
CPT/HCPCS: 73110; 99283

== ENCOUNTER 2024-02-22 12:25 | Emergency (ER) | payer OTHER, SELFPAY ==
--- NOTE | ~2024-02-22 | CT_ITS ---
EXAMINATION: CT abdomen pelvis w con DATE: 02/22/2024 15:03 INDICATION: Abdominal pain. Left groin pain. TECHNIQUE: Computed tomography (CT) of the abdomen and pelvis was performed with 100 mL Omnipaque 350 intravenous contrast. Automated exposure control and iterative reconstruction technique were employe d. The dose-length product was 1042.70 mGy-cm. COMPARISON: None. FINDINGS: The visualized portions of the lung bases demonstrate mild atelectasis. Calcified left lung nodules are consistent with old granulomatous disease. No pleural effusion. The heart size is normal . There are coronary artery calcifications. No pericardial effusion. The liver, gallbladder, spleen, pancreas, and adrenal glands are normal. There is cortical thinning in the kidneys. There is a 7 mm c yst in right kidney. There is a 4 mm stone in right kidney. There is a 2 mm stone in left kidney. The re is prominent fat in left inguinal canal that may be a hernia. The appendix is normal. There are no dilated loops of bowel. There are no pathologically enlarged lymph nodes. There is no free intraperi toneal fluid. There is severe lower lumbar spondylosis. There is mild thoracic spondylosis. IMPRESSION: 1. Prominent fat in left inguinal canal that may be a hernia. Reviewed, dictated and finalized at location A.
[2024-02-22 12:42] VITALS: BP 149/85; PULSE 93; RESP 16; TEMP 36.6; O2SAT 99
--- NOTE | 2024-02-22 14:23 | ED.GENADULT ---
HPI - General Adult General Chief complaint: Unspecified <Emma Bee [employer] SALES MANAGER - Last Filed: 02/22/24 14:27> Stated complaint: groin pain <Emma Bee [employer] SAL[employer] MANAGER - Last Filed: 02/22/24 14:27> Time Seen by Provider: 02/22/24 14:23 <Emma Bee [employer] SAL[employer] MANAGER - Last Filed: 02/22/24 14:27> Focused HPI: Rolando Alcala is a 53 y/o male who presents with reports of straining his left groin at work about 2 weeks ago , he states that he has been taking it easy for the past two week but the pain is getting worse from his left lower abdomen down into his left scrotum. Denies any scrotum swelling / Denies fever/chills/ denies changes to BMs other then causing pain to his groin with BMs and denies changes to urine. GENERAL: Well-appearing, well-nourished, and in no acute distress. HEAD: Normocephalic, atraumatic. CHEST: Clear to auscultation. ?No respiratory distress. HEART: Regular rate and rhythm.? NEURO: ?Alert and oriented x3. Patient screened in triage and initial orders placed.? ?Additional care and disposition to be based upon?diagnostic testing and treatment. <Emma Bee, [employer] SALES MANAGER - Last Filed: 02/22/24 14:27> History of Present Illness HPI narrative: Agree with as above with the following: Heaving lifting either 02/09 or 02/10. Has not taken anythign for pain except ice. No penile discharge. Passing flatus. Pain 6/10 in severity. Has a PCP but can not recall their name. <Dang Madrid MD - Last Filed: 02/27/24 21:08> Related Data Home medications: Home Medications Medication Instructions Recorded Confirmed losartan 50 mg tablet 100 mg PO DAILY 08/27/20 02/25/24 tamsulosin 0.4 mg capsule 0.4 mg PO DAILY 08/27/20 02/25/24 carvedilol 12.5 mg tablet 12.5 mg PO BID 09/27/22 02/25/24 hydrochlorothiazide 25 mg tablet 25 mg PO QHS 09/27/22 02/25/24 simvastatin 20 mg tablet 40 mg PO DAILY 02/14/24 02/25/24 <Emma Loya February, Last Filed: 02/22/24 14:27> Allergies/adverse reactions: Allergies Allergy/AdvReac Type Severity Reaction Status Date / Time No Known Allergies Allergy Verified 02/24/24 15:17 <Emma Loya February, Last Filed: 02/22/24 14:27> [facility] Past Medical History Medical History: Medical History Bruises easily History of hyperlipidemia History of hypertension History of stress test Sleep apnea <Emma Loya February, Last Filed: 02/22/24 14:27> Surgical History Surgical History: Surgical History History of ankle surgery Rt ankle screws placed History of arthroscopic surgery of shoulder Lt shoulder biceps tendon repaired History of hand surgery middle finger rt hand History of sinus surgery x4 History of surgery on lower extremity 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 <Emma Loya February, Last Filed: 02/22/24 14:27> Family History Family History: Family History Mother Diabetes mellitus Hypertension Thyroid disorder Father Diabetes mellitus Acute myocardial infarction Hypertension Heart disease Grandparent Malignant neoplasm of prostate Acute myocardial infarction Cancer Other Acute myocardial infarction <Emma Loya February, Last Filed: 02/22/24 14:27> Social History Social History: Social History (Updated 02/27/24 @ 21:02 by Dang Madrid MD) Smoking packs per day: 1 Smoking cigarettes per day: 20.0 Smoking status: Former smoker Tobacco type: cigarettes Smoking end date: 09/24/22 Alcohol intake: current Drinks per week: 16 Substance use: current Substance use type: marijuana Do You Feel Safe in your Home?: Yes Lack of Transportation: YES Lack of Food: Never True Current Housing: I Have Housing Concerned About Future Housing: No Difficulty Paying Gas/Electric Bills: YES Difficulty Paying for Meds: No Currently U
[2024-02-22 14:55] LABS: Basophils Percent Auto 0.3 % (0.2-1.2); Eosinophils Absolute Auto 0.2 K/mm3 (0-0.3); Eosinophils Percent Auto 2.6 % (0-4.4); Hematocrit 48.1 % (42.0-52.0); Hemoglobin 16.6 g/dL (14.0-18.0); Immature Granulocyte Absolute 0.01 K/mm3 (0.00-0.031); Immature Granulocyte Percent A 0.2 % (0-0.5); Lymphocytes Absolute Auto 1.44 K/mm3 (0.9-3.2); Lymphocytes Percent Auto 21.8 % (18.3-44.2); Mean Corpuscular HGB Conc 34.5 g/dl (32-36); Mean Corpuscular Hemoglobin 30.6 pg (26-34); Mean Corpuscular Volume 88.6 fl (80-100); Mean Platelet Volume 8.8 fl (7.4-10.4); Monocytes Absolute Auto 0.5 K/mm3 (0.1-0.6); Monocytes Percent Auto 8.2 % (2.6-8.5); Neutrophils Absolute Auto 4.4 K/mm3 (1.3-6.7); Neutrophils Percent Auto 66.9 % (45.5-73.1); Platelet Count Result 195 k/mm3 (150-375); Red Blood Count 5.43 M/mm3 (4.6-6.20); Red Cell Distribution Width 13.2 % (11.5-14.5); White Blood Count 6.6 K/mm3 (4.5-10.0)
[2024-02-22 15:03] LABS: Appearance Urine Clear (Clear); Bilirubin Urine Negative (Negative); Blood Urine Negative (Negative); Color Urine Yellow (Yellow); Glucose Urine UA Negative (Negative); Ketones Urine Negative (Negative); Leukocyte Esterase Ur Negative LEU/UL (Negative); Nitrate Urine Negative (Negative); Protein Urine Negative (Negative); Specific Grav Ur 1.022 (1.001-1.035); Urobilinogen Urine 0.2 mg/dL (<2.0); pH Urine 6.5 (5.0-9.0)
[2024-02-22 15:06] LABS: Add Urine Microscopic? NO
[2024-02-22 15:10] LABS: Alanine Aminotransferase 25 U/L (6-50); Albumin Level 4.6 g/dL (3.5-5.1); Alkaline Phosphatase 98 U/L (38-126); Anion Gap 8 mmol/L (4-12); Aspartate Amino Transferase 26 U/L (17-59); Bilirubin,Total 0.6 mg/dL (0.2-1.3); Blood Urea Nitrogen 23 mg/dL (9-20); Calcium 9.7 mg/dL (8.4-10.2); Carbon Dioxide 29 mmol/L (22-30); Chloride 104 mmol/L (98-107); Estimated CRCL calculation 86 ml/min; Estimated Glomerular Filt Rate > 60; Glucose 116 mg/dL (65-110); Lipase 107 U/L (23-300); Potassium 3.7 mmol/L (3.4-5.0); Sodium 141 mmol/L (137-145)
[2024-02-22] MEDS: IBUPROFEN 600 MG TABLET PO (16:06)
[2024-02-22] MEDS: ACETAMINOPHEN 500 MG TABLET 1000 MG PO (16:06)
== END 2024-02-22 16:20 | disposition home or self-care (01) ==
LOC: ANHED 16:08
PROVIDERS: Nurse Practitioner Family; Emergency Provider Student in an Organized Health Care Education/Training Program; PCP Physician Assistant
DX: K40.90 Unilateral inguinal hernia, without obstruction or gangrene, not specified as recurrent (principal); E78.5 Hyperlipidemia, unspecified; I10 Essential (primary) hypertension; G47.30 Sleep apnea, unspecified; Z87.891 Personal history of nicotine dependence
CPT/HCPCS: 36415; 74177; 80053; 81003; 83690; 85025; 99284; A9270; Q9967

== ENCOUNTER 2024-02-27 00:10 | Emergency (ER) | payer OTHER, SELFPAY ==
[2024-02-26 23:33] VITALS: BP 176/86; PULSE 68; RESP 16; TEMP 36.6; O2SAT 100
--- NOTE | 2024-02-27 00:16 | ED.BACK ---
HPI - Back Pain/Injury General Chief Complaint: Back Pain/Injury Stated Complaint: back pain; back spasms Source: patient Mode of arrival: ambulatory Limitations: no limitations History of Present Illness HPI Narrative: This is a 53-year-old male who presents to the ED via EMS for chief complaint of lower back spasms for the past 24 hours. Reports he has been dealing with back pains for the past couple of weeks after straining at work. 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 Today he is not sure what prompted this spasms but feels pain in his left lower back. Reports that it does shoot down into the left outer thigh. Denies any chronic back pain history. Denies numbness, weakness of the extremities. Denies fevers, chills nausea, vomiting, night sweats, bowel or bladder dysfunction. He has tried Tylenol at home with no relief Related Data Home Medications Medication Instructions Recorded Confirmed losartan 50 mg tablet 100 mg PO DAILY 08/27/20 02/25/24 tamsulosin 0.4 mg capsule 0.4 mg PO DAILY 08/27/20 02/25/24 carvedilol 12.5 mg tablet 12.5 mg PO BID 09/27/22 02/25/24 hydrochlorothiazide 25 mg tablet 25 mg PO QHS 09/27/22 02/25/24 simvastatin 20 mg tablet 40 mg PO DAILY 02/14/24 02/25/24 Allergies Allergy/AdvReac Type Severity Reaction Status Date / Time No Known Allergies Allergy Verified 02/24/24 15:17 Review of Systems Review of Systems: All systems as dictated in HPI [facility] Past Medical History Medical History Bruises easily History of hyperlipidemia History of hypertension History of stress test Sleep apnea Surgical History Surgical History History of ankle surgery Rt ankle screws placed History of arthroscopic surgery of shoulder Lt shoulder biceps tendon repaired History of hand surgery middle finger rt hand History of sinus surgery x4 History of surgery on lower extremity 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 Family History Family History Mother Diabetes mellitus Hypertension Thyroid disorder Father Diabetes mellitus Acute myocardial infarction Hypertension Heart disease Grandparent Malignant neoplasm of prostate Acute myocardial infarction Cancer Other Acute myocardial infarction Social History Social History (Updated 02/24/24 @ 15:19 by Micaela Newton MA) Smoking packs per day: 1 Smoking cigarettes per day: 20.0 Smoking status: Former smoker Tobacco type: cigarettes Smoking end date: 09/24/22 Alcohol intake: current Drinks per week: 16 Substance use: current Substance use type: marijuana Do You Feel Safe in your Home?: Yes Lack of Transportation: YES Lack of Food: Never True Current Housing: I Have Housing Concerned About Future Housing: No Difficulty Paying Gas/Electric Bills: YES Difficulty Paying for Meds: No Currently Unemployed: No Education: Trade/Vocational Certificate Difficulty w/ Childcare or Family Care: No Spiritual care concerns: No Exam Narrative: GENERAL: Writhing in the bed. Difficulty with finding comfortable position HEAD: Normocephalic, atraumatic. EYES: PERRLA and EOMI. ENT: Nares clear, no rhinorrhea or epistaxis. Mucous membranes moist. Oropharynx without tonsillar hypertrophy exudate or other lesions. NECK: Supple. No adenopathy or masses. CHEST: No respiratory distress. Clear to auscultation. No wheezes rales or rhonchi HEART: Regular rate and rhythm. No murmur heard. Normal peripheral pulses. ABDOMEN: Soft, nontender, nondistended, normal active bowel sounds. MSK: Mild left-sided paraspinal lumbar tenderness. No midline spinal tenderness throughout. Equivocal straight leg raise 5/5 strength and sensation in the upper and lower extremities. No saddle anesthesia. SKIN: Warm, dry, no r
[2024-02-27] MEDS: ACETAMINOPHEN 500 MG TABLET 1000 MG PO (00:24)
[2024-02-27] MEDS: KETOROLAC 15 MG/ML VIAL (*BKC) IV PUSH (00:25)
[2024-02-27] MEDS: diazePAM INJ (*CRX) 10 MG/2 ML SYRINGE 5 MG IV PUSH (00:25)
[2024-02-27 00:29] VITALS: BP 158/96; PULSE 72; RESP 17; O2SAT 95
[2024-02-27] MEDS: HYDROmorphone HCL INJ (*CRX) 1 MG/ML SYR 0.5 MG IV PUSH (01:27)
[2024-02-27 02:23] VITALS: BP 149/74; PULSE 63; RESP 15; O2SAT 100
== END 2024-02-27 02:26 | disposition home or self-care (01) ==
PROVIDERS: Emergency Provider Physician Assistant; PCP Physician Assistant
DX: M62.830 Muscle spasm of back (principal); E78.5 Hyperlipidemia, unspecified; I10 Essential (primary) hypertension; G47.30 Sleep apnea, unspecified; Z87.891 Personal history of nicotine dependence
CPT/HCPCS: 96374; 96375; 99284; A9270; J1170; J1885; J3360

== ENCOUNTER 2024-12-02 12:14 | Emergency (ER) | payer OTHER, SELFPAY ==
--- NOTE | ~2024-12-02 | XR_ITS ---
EXAMINATION: XR chest 2V DATE: 12/02/2024 13:25 INDICATION: Productive cough. TECHNIQUE: Frontal and lateral views of the chest were obtained. COMPARISON: Chest 2 views 01/01/2023 FINDINGS: There is no pneumonia, pleural effusion, or pneumothorax. The heart size is normal. IMPRESSION: 1. No acute cardiopulmonary disease. Reviewed, dictated and finalized at location A. [employer]
--- NOTE | 2024-12-02 12:20 | ED_ITS ---
HPI - URI/Sore Throat General Chief Complaint: Upper Respiratory Infection Stated Complaint: cough,chest congestion, HX COPD Time Seen by Provider: 12/02/24 12:20 Source: patient, RN notes reviewed and old records reviewed Mode of arrival: ambulatory Limitations: no limitations History of Present Illness HPI Narrative: Patient presents accompanied by his . He reports that he began with febrile illness 4 days ago. He now has increased wheezing, productive cough. He denies any shortness of breath. He does report history of pneumonia in the past, states that he feels similar. He has been taking [id number] medication for his symptoms. He reports he does have nebulizer machine at home, but is out of medication for this. He is not in any distress, able speak in complete sentences without difficulty Related Data Home Medications ?Medication ?Instructions ?Recorded ?Confirmed ?Last Taken ?Type tamsulosin 0.4 mg capsule 0.4 mg PO DAILY 08/27/20 03/09/24 08/27/20 History carvedilol 12.5 mg tablet 12.5 mg PO BID 09/27/22 03/09/24 Unknown History hydrochlorothiazide 25 mg tablet 25 mg PO QHS 09/27/22 03/09/24 Unknown History budesonide 160 mcg-glycopyr 9 inh inhalation 12/02/24 Unknown History mcg-formot 4.8 mcg/actuation HFA inhaler (Breztri Aerosphere) gabapentin 300 mg capsule mg 12/02/24 Unknown History losartan 100 mg tablet mg 12/02/24 Unknown History simvastatin 40 mg tablet mg 12/02/24 Unknown History Allergies Allergy/AdvReac Type Severity Reaction Status Date / Time No Known Allergies Allergy Verified 12/02/24 12:38 Review of Systems Review of Systems: All systems reviewed & are unremarkable except as noted in HPI and below Constitutional: Constitutional: Reports as per HPI, Reports no additional constitutional complaints, Reports body ache(s), Reports chills, Reports fever(s), Reports headache(s) and Reports lethargy ENT: Reports system reviewed and no additional complaints, except as documented, Reports as per HPI, Reports nasal congestion and Reports nasal discharge Cardiovascular: Cardiovascular: Reports no additional cardiovascular complaints Respiratory: Respiratory: Reports change in phlegm color, Reports chest congestion, Reports cough, Reports excessive phlegm production, Reports pain with cough and Reports wheezing Gastrointestinal: Gastrointestinal: Reports no additional gastrointestinal complaints PMFSH Past Medical History Medical History Bruises easily History of stress test Sleep apnea History of hyperlipidemia History of hypertension Surgical History Surgical History History of surgery on lower extremity 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 History of ankle surgery Rt ankle screws placed History of hand surgery middle finger rt hand History of arthroscopic surgery of shoulder Lt shoulder biceps tendon repaired History of sinus surgery x4 Family History Family History Mother Diabetes mellitus Hypertension Thyroid disorder Father Diabetes mellitus Acute myocardial infarction Hypertension Heart disease Grandparent Malignant neoplasm of prostate Acute myocardial infarction Cancer Other Acute myocardial infarction Social History Social History Smoking packs per day: 1 Smoking cigarettes per day: 20.0 Smoking status: Former smoker Tobacco type: cigarettes Smoking end date: 09/24/22 Alcohol intake: current Drinks per week: 16 Substance use: current Substance use type: marijuana Do You Feel Safe in your Home?: Yes Lack of Transportation: No Lack of Food: Never True Current Housing: I Have Housing Concerned About Future Housing: No Difficulty Paying Gas/Electric Bills: No Difficulty Paying for Meds: No Currently Unemployed: No Education: Trade/Vocational Certificate Difficulty w/ Childcare or Family Care: No Occupation/Education: occupation 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 There is no relevant family history pertinent to the patient complaint. Exam Const: General: cooperative, no acute distress, alert and awake Orientation/consciousness: oriented to person, oriented to place and oriented to time HENMT: Head: normal to inspection Mouth: Yes moist mucous membranes Throat: postnasal drainage Resp: Effort & Inspection: normal respiratory effort and able to speak in complete sentences Auscultation: clear to auscultation bilaterally, no crackles, no rales, no rhonchi and wheezes expiratory wheezes and scattered wheezes Cardio: Palpation: normal PMI Rate: regular rate Rhythm: regular rhythm Heart sounds: S1 normal heart sound present and S2 normal heart sound present Neuro: General: oriented to person, oriented to place and oriented to time Cranial nerves: Yes CN's II-XII intact bilaterally Psych: Appearance: grossly normal Thought process: Normal thought process present Insight: Good insight present (Psych) Judgement: Good judgement present (Psych) Course Course Level of Care: Express Care Visit Vital Signs Vital signs: Vital Signs Temperature 100.2 F H 12/02/24 12:29 Pulse Rate 51 L 12/02/24 12:29 Respiratory Rate 16 12/02/24 12:29 Blood Pressure 138/67 12/02/24 12:29 Pulse Oximetry 98 12/02/24 12:29 Oxygen Delivery Room Air 12/02/24 12:29 Temperature 100.2 F H 12/02/24 12:29 Pulse Rate 51 L 12/02/24 12:29 Respiratory Rate 16 12/02/24 12:29 Blood Pressure 138/67 12/02/24 12:29 Pulse Oximetry 98 12/02/24 12:29 Oxygen Delivery Room Air 12/02/24 12:29 Reviewed MDM - URI/Sore Throat MDM Narrative Medical decision making narrative: Patient much improved after neb treatment and 1st dose of prednisone. Chest x- ray without any acute findings. Patient is nontoxic appearing, stable for discharge home. Strict emergency department precautions discussed. COPD exacerbation likely secondary to influenza. Patient out of window for tamiflu Discharge instructions reviewed with patient, as well as provided in writing per nursing staff. The instructions also include specific and strict return/GO TO THE ER as well as f/u information. All questions have been answered, and the patient deny any further questions with discharge and discharge plan. Some parts of this dictation were generated by voice recognition software and may contain typographical and/or grammatical inaccuracies. Differential Diagnosis Differential diagnosis: Likely upper respiratory infection, otitis media, viral infection, bronchitis and influenza Medical Records Attestation: I reviewed the patient's medical records. Lab Data Attestation: I reviewed the patient's lab results. Labs: Lab Results 12/02/24 Range/Units 12:50 POC Influenza A Ag Positive (Negative) POC Influenza B Ag Negative (Negative) POC SARS CoV-2 Ag Negative (Negative) Discharge Plan Discharge Clinical Impression: COPD exacerbation, Influenza A Patient Disposition: Home, Self-Care Condition: Stable Instructions: Antibiotic Form, Influenza (ED), COPD (Chronic Obstructive Pulmonary Disease) (ED) Additional Instructions: Take medications as prescribed. Follow-up with primary care provider. Emergency department immediately for new or worsening symptoms Patient Language: Scottish Prescriptions: New azithromycin 250 mg tablet See Rx Instructions .ROUTE .COMPLEX Qty: 6 0RF Rx Instructions: For 250 mg dose pack: take 500 mg today (day 1), then 250 mg for 4 days (days 2-5) prednisone 50 mg tablet 50 mg PO DAILY Qty: 4 0RF albuterol sulfate [Ventolin HFA] 90 mcg/actuation HFA aerosol inhaler 2 puff inhalation QID PRN (Reason: shortness of breath or wheezing) Qty: 8.5 0RF albuterol sulfate 2.5 mg /3 mL (0.083 %) solution for nebulization 2.5 mg inhalation Q4H PRN (Reason: shortness of breath or wheezing) Qty: 180 0RF No Action simvastatin 40 mg tablet gabapentin 300 mg capsule losartan 100 mg tablet Breztri Aerosphere 160-9-4.8 mcg/actuation HFA aerosol inhaler INHALATION tamsulosin 0.4 mg capsule 0.4 mg PO DAILY acetaminophen 500 mg capsule 1,000 mg PO Q6H PRN (Reason: pain) Qty: 20 0RF carvedilol 12.5 mg Tablet 12.5 mg PO BID hydrochlorothiazide 25 mg Tablet 25 mg PO QHS albuterol sulfate 90 mcg/actuation HFA aerosol inhaler 2 puff inhalation QID PRN (Reason: shortness of breath or wheezing) Qty: 8.5 0RF Follow-up/Referrals: Danny,BEAR Crane [Primary Care Provider] - 3 Days Time of Disposition: 13:46
[2024-12-02 12:29] VITALS: BP 138/67; PULSE 51; RESP 16; TEMP 37.9; O2SAT 98
[2024-12-02] MEDS: IPRATROPIUM 0.5 MG/ALBUTEROL SULFATE 2.5 MG AMPUL.NEB 3 ML INHALATION (12:51)
[2024-12-02] MEDS: predniSONE 20 MG TABLET 60 MG PO (12:51)
[2024-12-02 12:53] LABS: EDCOVIDSCREEN Negative (Negative); EDINFLUASCREEN Positive (Negative); EDINFLUBSCREEN Negative (Negative)
[2024-12-02 13:30] VITALS: PULSE 70; RESP 20; O2SAT 98
== END 2024-12-02 14:00 | disposition home or self-care (01) ==
PROVIDERS: Emergency Provider Nurse Practitioner Family; PCP Physician Assistant
DX: J44.1 Chronic obstructive pulmonary disease with (acute) exacerbation (principal); J10.1 Influenza due to other identified influenza virus with other respiratory manifestations; Z20.822 Contact with and (suspected) exposure to COVID-19; I10 Essential (primary) hypertension; E78.5 Hyperlipidemia, unspecified; Z87.891 Personal history of nicotine dependence
CPT/HCPCS: 71046; 87426; 87804; 94640; 99213; G0463; J7512